=== PATIENT | female | born 1955 | race Caucasian/White ===

== ENCOUNTER 2016-09-02 09:07 | Outpatient (CLI) | payer MEDICAID | END 2016-09-02 09:08 | disposition home or self-care (01) | DX: Z12.31 Encounter for screening mammogram for malignant neoplasm of breast (principal) ==

== ENCOUNTER 2016-09-02 09:08 | Outpatient (CLI) | payer MEDICAID | END 2016-09-02 09:09 | disposition home or self-care (01) | DX: M85.89 Other specified disorders of bone density and structure, multiple sites (principal) ==

== ENCOUNTER 2017-01-05 09:25 | Outpatient (CLI) | payer MEDICAID ==
[2017-01-05 10:37] LABS: HEMOGLOBIN A1C 0.53 g/dL
[2017-01-05 11:04] LABS: ALBUMIN/GLOBULIN RATIO 1.4 (1.0-2.2); BILIRUBIN,TOTAL 0.9 mg/dL (0.2-1.0); BUN - BLOOD UREA NITROGEN 20 mg/dL (6-20); CARBON DIOXIDE - CO2 26 mmol/L (21-32); CHLORIDE 104 mmol/L (101-111); CHOL/HDL RATIO 2.5 (<4.4); CHOLESTEROL 118 mg/dL; CREATININE 0.9 mg/dL (0.4-1.0); GFR - MDRD 64 (>89); GLUCOSE 102 mg/dL (70-100); HDL CHOLESTEROL 47 mg/dL; POTASSIUM 3.4 mmol/L (3.5-5.0); SODIUM 141 mmol/L (135-145); TOTAL PROTEIN 7.8 g/dL (6.7-8.2); TRIGLYCERIDES 121 mg/dL; VLDL CHOLESTEROL 24 mg/dL
== END 2017-01-05 09:26 | disposition home or self-care (01) ==
LOC: LAB 09:25
PROVIDERS: ATTEND Physician Assistant Medical
DX: E78.5 Hyperlipidemia, unspecified (principal); E11.9 Type 2 diabetes mellitus without complications; Z79.899 Other long term (current) drug therapy
CPT/HCPCS: 36415; 80053; 80061; 83036

== ENCOUNTER 2017-02-26 12:27 | Emergency (ER) | payer MEDICAID ==
[2017-02-26] MEDS ORDERED: HYDROcod/ACETAM 5/325 MG TABLET PO STA (13:25)
--- NOTE | 2017-02-26 13:26 | ED Physician Documentation ---
PD HPI UPPER EXT INJURY - Stated complaint Stated Complaint: RT HAND INJ - Chief complaint Chief Complaint: Ext Problem - History obtained from History obtained from: Patient - History of Present Illness Location: Right, Hand Type of injury: Fall (tripped over her dogs leash, FOOSH inj) Where injury occurred: Home Timing - onset: Today (10am) Review of Systems Constitutional: denies: Fever, Chills Cardiac: denies: Chest pain / pressure, Palpitations Respiratory: denies: Dyspnea, Cough GI: denies: Abdominal Pain Musculoskeletal: denies: Pain with weight bearing Neurologic: denies: Headache, Head injury, LOC PD PAST MEDICAL HISTORY - Past Medical History Past Medical History: Yes Cardiovascular: Hypertension, High cholesterol Respiratory: None Endocrine/Autoimmune: Type 2 diabetes GI: GERD, Colon polyps, Diverticulitis : None HEENT: Chronic vision loss Psych: Depression, Anxiety, ADD/ADHD Musculoskeletal: Gout, Other Derm: Eczema - Past Surgical History Past Surgical History: Yes General: Colonoscopy - Present Medications Home Medications: Ambulatory Orders Medication Instructions Recorded Confirmed Escitalopram Oxalate 20 mg PO DAILY 11/01/15 02/26/17 HYDROcod/ACETAM 5/325 [[place] 5/325] 1 - 2 ea PO Q6H PRN #10 tablet 02/26/17 Trazodone HCl 50 mg PO DAILY PM 02/26/17 02/26/17 - Allergies Allergies/Adverse Reactions: Allergies Allergy/AdvReac Type Severity Reaction Status Date / Time No Known Drug Allergies Allergy Verified 02/26/17 12:39 - Social History Does the pt smoke?: No Smoking Status: Never smoker Does the pt drink ETOH?: No Does the pt have substance abuse?: No - Immunizations Immunizations are current?: No PD ED PE NORMAL - Vitals Vital signs reviewed: Yes - General General: Alert and oriented X 3, No acute distress - Neck Neck: Supple, no meningeal sign, No bony TTP - Extremities Extremities: Other (Tender in the area of the trapezium on the right hand, no laxity of the MCP. No snuffbox tenderness and really does not have pain with axial loading of the thumb. She says it mostly hurts when she touches her thumb and pinky together. There is some mild swelling in the area but no deformity. She does complain of mild left knee pain but she is nontender there and bearing weight normally.) - Neuro Neuro: Alert and oriented X 3, Normal speech - Psych Psych: Normal mood, Normal affect Results - Vitals Vitals: Vital Signs - 24 hr 02/26/17 12:35 Temperature 37.0 C Heart Rate 75 Respiratory 16 Rate Blood Pressure 126/86 H O2 Saturation 100 Oxygen O2 Source Room air - Rads (name of study) 3v L hand Radiology: EMP read contemporaneously (negative) Departure - Departure Disposition: 01 Home, Self Care Clinical Impression: Sprain of left hand Qualifiers: Encounter type: initial encounter Qualified Code(s): S63.92XA - Sprain of unspecified part of left wrist and hand, initial encounter Condition: Good Record reviewed to determine appropriate education?: Yes Instructions: ED Sprain Wrist Prescriptions: HYDROcod/ACETAM 5/325 [[place] 5/325] 1 - 2 ea PO Q6H PRN #10 tablet PRN Reason: Pain Comments: You can wear the splint as needed for comfort, you can take it off for handwashing etc. Follow-up with your doctor in 1 week for repeat x-rays if not better. Do not drink or drive while taking narcotic pain medication. Note that many narcotic pain relievers also contain Tylenol/acetaminophen. Please ensure that your total dose of acetaminophen from all sources does not exceed 3 g (3000 mg) per day. You may get constipated while on this medication. Take a stool softener such as Colace twice a day while you are on it. Also add an kcve-[id number] laxative such as senna or MiraLAX on any day that you do not have a bowel movement. If you received a narcotic pain medication or sedative while in the emergency department, do not drive for the next 24 hours. Your blood pressure was elevated today on check into the emergency department. This does not mean that you have hypertension, it is a common phenomenon to come to the emergency department and have elevated blood pressure. I recommend that she see her primary care physician within the week to have it rechecked when you are feeling better.
[2017-02-26] MEDS ORDERED: HYDROcod/ACETAM 5/325 MG TABLET ONE (13:33)
--- NOTE | 2017-02-26 13:57 | XRAY Preliminary Report ---
Exam: XR Hand 3 View RT IMPRESSION: No evidence of fracture or dislocation. [facility] SITE ID: [id number]
--- NOTE | 2017-02-26 13:59 | XRAY Report ---
EXAM: RIGHT HAND RADIOGRAPHY EXAM DATE: 02/26/2017 01:41 PM. CLINICAL HISTORY: Right hand pain COMPARISON: None. TECHNIQUE: 3 views. FINDINGS: Bones: Normal. No fractures or bone lesions. Joints: Normal. No subluxations. Soft Tissues: Normal. No soft tissue swelling. IMPRESSION: No evidence of fracture or dislocation. [facility] Referring Provider Line: [phone] SITE ID: [id number]
[2017-02-26 14:19] VITALS: BP 120/80
== END 2017-02-26 14:24 | disposition home or self-care (01) ==
LOC: ED 12:27
DX: S63.92XA Sprain of unspecified part of left wrist and hand, initial encounter (principal); W18.09XA Striking against other object with subsequent fall, initial encounter; Y92.009 Unspecified place in unspecified non-institutional (private) residence as the place of occurrence of the external cause; I10 Essential (primary) hypertension; E78.00 Pure hypercholesterolemia, unspecified
CPT/HCPCS: 73130; 99283; A9270

== ENCOUNTER 2017-04-13 09:11 | Outpatient (CLI) | payer MEDICAID ==
[2017-04-13 10:30] LABS: ALBUMIN/GLOBULIN RATIO 1.5 (1.0-2.2); BILIRUBIN,TOTAL 0.7 mg/dL (0.2-1.0); BUN - BLOOD UREA NITROGEN 16 mg/dL (6-20); CALCIUM 9.6 mg/dL (8.5-10.3); CARBON DIOXIDE - CO2 30 mmol/L (21-32); CHLORIDE 103 mmol/L (101-111); CHOL/HDL RATIO 6.2 (<4.4); CHOLESTEROL 285 mg/dL; CREATININE 0.9 mg/dL (0.4-1.0); GFR - MDRD 64 (>89); GLUCOSE 105 mg/dL (70-100); HDL CHOLESTEROL 46 mg/dL; LDL/HDL RATIO 4.2 (<4.4); POTASSIUM 4.7 mmol/L (3.5-5.0); SODIUM 140 mmol/L (135-145); TOTAL PROTEIN 7.2 g/dL (6.7-8.2); TRIGLYCERIDES 221 mg/dL; VLDL CHOLESTEROL 44 mg/dL
[2017-04-13 10:43] LABS: HEMOGLOBIN A1C 0.54 g/dL
== END 2017-04-13 09:12 | disposition home or self-care (01) ==
LOC: LAB 09:11
PROVIDERS: ATTEND Physician Assistant Medical
DX: E78.5 Hyperlipidemia, unspecified (principal); E11.9 Type 2 diabetes mellitus without complications; Z51.81 Encounter for therapeutic drug level monitoring; Z79.899 Other long term (current) drug therapy
CPT/HCPCS: 36415; 80053; 80061; 82043; 83036

== ENCOUNTER 2017-09-11 10:44 | Emergency (ER) | payer MEDICAID ==
[2017-09-11 10:50] VITALS: BP 158/108
--- NOTE | 2017-09-11 12:03 | ED Physician Documentation ---
History of Present Illness - Stated complaint Stated Complaint: RASH - Chief complaint Chief Complaint: General - Additonal information Additional information: hx from pt 61 female to ER with rash to R inguinal crease bruning no other concerns Review of Systems Constitutional: denies: Fever Skin: reports: Rash PD PAST MEDICAL HISTORY - Past Medical History Cardiovascular: Hypertension, High cholesterol Respiratory: None Endocrine/Autoimmune: Type 2 diabetes GI: GERD, Colon polyps, Diverticulitis : None HEENT: Chronic vision loss Psych: Depression, Anxiety, ADD/ADHD Musculoskeletal: Gout, Other Derm: Eczema - Past Surgical History Past Surgical History: Yes General: Colonoscopy - Present Medications Home Medications: Ambulatory Orders Medication Instructions Recorded Confirmed Escitalopram Oxalate 20 mg PO DAILY 11/01/15 02/26/17 Trazodone HCl 50 mg PO DAILY PM 02/26/17 02/26/17 Clotrimazole [Clotrimazole AF] 1 applic TP BID #30 cream..g. 09/11/17 Escitalopram Oxalate [Lexapro] 5 mg PO 09/11/17 Simvastatin 09/11/17 - Allergies Allergies/Adverse Reactions: Allergies Allergy/AdvReac Type Severity Reaction Status Date / Time No Known Drug Allergies Allergy Verified 09/11/17 10:50 - Social History Does the pt smoke?: No Smoking Status: Never smoker Does the pt drink ETOH?: No Does the pt have substance abuse?: No - Immunizations Immunizations are current?: No PD ED PE NORMAL - Vitals Vital signs reviewed: Yes - Cardiac Cardiac: RRR - Respiratory Respiratory: No respiratory distress, Clear bilaterally - Derm Derm: Other (most beefy red rash in opposing semicircles over the inguinal crease, no bullae crepitus or necrosis) Results - Vitals Vitals: Vital Signs - 24 hr 09/11/17 10:48 Temperature 36 C L Heart Rate 73 Respiratory 20 Rate Blood Pressure 158/108 H O2 Saturation 100 Oxygen O2 Source Room air PD MEDICAL DECISION MAKING - ED course ED course: FSBS 101 Departure - Departure Disposition: 01 Home, Self Care Clinical Impression: Yeast dermatitis Condition: Good Instructions: ED Candidiasis Cutaneous Prescriptions: Clotrimazole [Clotrimazole AF] 1 applic TP BID #30 cream..g. Comments: Please get your blood pressure rechecked - it was high today
== END 2017-09-11 12:34 | disposition home or self-care (01) ==
LOC: ED 10:44
DX: L30.9 Dermatitis, unspecified (principal); B37.89 Other sites of candidiasis; I10 Essential (primary) hypertension; E78.00 Pure hypercholesterolemia, unspecified
CPT/HCPCS: 99283

== ENCOUNTER 2017-09-22 09:57 | Outpatient (CLI) | payer MEDICAID ==
[2017-09-22 13:03] LABS: HB2 TOTAL 15.9 g/dL; HEMOGLOBIN A1C 0.57 g/dL; HEMOGLOBIN A1C % 5.4 % (4.6-6.2)
[2017-09-22 13:10] LABS: ALBUMIN 4.3 g/dL (3.2-5.5); ALBUMIN/GLOBULIN RATIO 1.5 (1.0-2.2); ALKALINE PHOSPHATASE 31 IU/L (42-121); ALT ALANINE AMINOTRANSFERASE 21 IU/L (10-60); AST ASPARTATE AMINOTRANSFERASE 21 IU/L (10-42); BILIRUBIN,TOTAL 0.6 mg/dL (0.2-1.0); BUN - BLOOD UREA NITROGEN 16 mg/dL (6-20); CALCIUM 9.3 mg/dL (8.5-10.3); CARBON DIOXIDE - CO2 29 mmol/L (21-32); CHLORIDE 103 mmol/L (101-111); CHOL/HDL RATIO 3.5 (<4.4); CHOLESTEROL 177 mg/dL; GFR - MDRD 57 (>89); GLUCOSE 106 mg/dL (70-100); HDL CHOLESTEROL 51 mg/dL; LDL CHOLESTEROL,CALCULATED 93 mg/dL; LDL/HDL RATIO 1.8 (<4.4); SODIUM 139 mmol/L (135-145); TOTAL PROTEIN 7.2 g/dL (6.7-8.2); VLDL CHOLESTEROL 33 mg/dL
== END 2017-09-22 09:58 | disposition home or self-care (01) ==
LOC: LAB.WCP 09:57
PROVIDERS: ATTEND Family Medicine
DX: E11.9 Type 2 diabetes mellitus without complications (principal); E78.5 Hyperlipidemia, unspecified; Z51.81 Encounter for therapeutic drug level monitoring
CPT/HCPCS: 36415; 80053; 80061; 83036; 83721

== ENCOUNTER 2018-07-28 23:09 | Outpatient (CLI) | payer MEDICAID | END 2018-07-28 23:10 | disposition home or self-care (01) | LOC: EMS 23:09 | PROVIDERS: ATTEND Surgery | DX: M54.9 Dorsalgia, unspecified (principal) | CPT/HCPCS: A0425; A0429 ==

== ENCOUNTER 2018-07-28 23:13 | Emergency (ER) | payer MEDICAID ==
[2018-07-28] MEDS ORDERED: KETOROLAC 60 MG/2 ML VIAL IM STA (23:25)
--- NOTE | 2018-07-28 23:33 | ED Physician Documentation ---
History of Present Illness - Stated complaint Stated Complaint: BACK PAIN - Chief complaint Chief Complaint: Back Pain - History obtained from History obtained from: Patient, EMS - History of Present Illness Timing: Today, How many hours ago (1) Pain level max: 9 Pain level now: 9 - Additonal information Additional information: 62-year-old female with sudden onset of left flank pain tonight. Does not recall any injury. Has had low back pain in the past but states this feels different. No numbness or tingling. Nothing makes the pain better or worse. Took Tylenol without relief. No fevers. No vomiting. No hematuria. No history of ureteral stones. Does not use IV drugs. Review of Systems Ten Systems: 10 systems reviewed and negative Constitutional: denies: Fever, Chills Ears: denies: Ear pain Nose: denies: Rhinorrhea / runny nose, Congestion Throat: denies: Sore throat Cardiac: denies: Chest pain / pressure Respiratory: denies: Cough GI: denies: Abdominal Pain, Nausea, Vomiting, Diarrhea : denies: Dysuria Skin: denies: Rash Musculoskeletal: denies: Neck pain, Back pain Neurologic: denies: Headache PD PAST MEDICAL HISTORY - Past Medical History Cardiovascular: Hypertension, High cholesterol Respiratory: None Endocrine/Autoimmune: Type 2 diabetes GI: GERD, Colon polyps, Diverticulitis : None HEENT: Chronic vision loss Psych: Depression, Anxiety, ADD/ADHD Musculoskeletal: Gout, Other Derm: Eczema - Past Surgical History Past Surgical History: Yes General: Colonoscopy - Present Medications Home Medications: Ambulatory Orders Medication Instructions Recorded Confirmed Escitalopram Oxalate 20 mg PO DAILY 11/01/15 02/26/17 Trazodone HCl 50 mg PO DAILY PM 02/26/17 02/26/17 Clotrimazole [Clotrimazole AF] 1 applic TP BID #30 cream..g. 09/11/17 Escitalopram Oxalate [Lexapro] 5 mg PO 09/11/17 Simvastatin 09/11/17 Meloxicam [Mobic] 15 mg PO DAILY PRN #20 tablet 07/29/18 Oxycodone HCl/Acetaminophen 1 - 2 each PO Q6H PRN #14 tablet 07/29/18 [Percocet 5-325 mg Tablet] - Allergies Allergies/Adverse Reactions: Allergies Allergy/AdvReac Type Severity Reaction Status Date / Time No Known Drug Allergies Allergy Verified 09/11/17 10:50 - Social History Does the pt smoke?: No Smoking Status: Never smoker Does the pt drink ETOH?: No Does the pt have substance abuse?: No - Immunizations Immunizations are current?: No PD ED PE NORMAL - Vitals Vital signs reviewed: Yes - General General: Alert and oriented X 3, No acute distress - HEENT HEENT: Moist mucous membranes - Neck Neck: Supple, no meningeal sign, No bony TTP - Cardiac Cardiac: RRR, Strong equal pulses - Respiratory Respiratory: No respiratory distress, Clear bilaterally - Abdomen Abdomen: Soft, Non tender, Non distended - Back Back: No CVA TTP, No spinal TTP (No midline tenderness to palpation or percussion.) - Derm Derm: Warm and dry - Extremities Extremities: No edema, No calf tenderness / cord, Other (Normal bilateral lower extremity patellar and ankle jerk reflexes. Normal great toe extension bilaterally. no saddle anesthesia) - Neuro Neuro: Alert and oriented X 3, No motor deficit, No sensory deficit - Psych Psych: Normal mood, Normal affect Results - Vitals Vitals: Vital Signs - 24 hr 07/28/18 07/28/18 07/29/18 23:15 23:33 01:21 Temperature 36.6 C Heart Rate 89 85 79 Respiratory 17 17 15 Rate Blood Pressure 141/80 H 118/59 L 130/78 O2 Saturation 96 96 95 Oxygen O2 Source Room air - Labs Labs: Laboratory Tests 07/28/18 07/28/18 07/29/18 23:34 23:34 00:05 WBC 5.3 RBC 4.36 Hgb 14.0 Hct 40.2 MCV 92.3 MCH 32.1 H MCHC 34.8 RDW 13.6 Plt Count 234 MPV 7.6 L Neut # (Auto) 2.7 Lymph # (Auto) 1.9 Lamb # (Auto) 0.4 Eos # (Auto) 0.2 Baso # (Auto) 0.1 Absolute Nucleated RBC 0.01 Nucleated RBC % 0.1 Sodium 137 Potassium 4.0 Chloride 102 Carbon Dioxide 27 Anion Gap 8.0 BUN 20 Creatinine 0.9 Estimated GFR (MDRD) 64 L Glucose 124 H Calcium 9.4 Total Bilirubin 0.4 AST 19 ALT 20 Alkaline Phosphatase 46 Total Protein 7.1 Albumin 3.9 Globulin 3.2 Albumin/Globulin Ratio 1.2 Lipase 39 Urine Color YELLOW Urine Clarity CLEAR Urine pH 5.5 Ur Specific [place] >=1.030 H Urine Protein NEGATIVE Urine Glucose (UA) NEGATIVE Urine Ketones TRACE Urine Occult Blood SMALL H Urine Nitrite NEGATIVE Urine Bilirubin NEGATIVE Urine Urobilinogen 0.2 (NORMAL) Ur Leukocyte Esterase NEGATIVE Urine RBC 6-10 H Urine WBC 0-3 Ur Squamous Epith Cells MOD Squamous H Urine Bacteria Few Urine Mucus Moderate Strands Ur Microscopic Review INDICATED Urine Culture Comments NOT INDICATED - Rads (name of study) Ct abd/pelvis without. Radiology: Prelim report reviewed, EMP read contemporaneously, See rad report (No urolithiasis identified. Left ovarian follicle measuring 1.6 cm. Colonic diverticula. No diverticulitis seen. Cholelithiasis without evidence of cholecystitis. ) PD MEDICAL DECISION MAKING - ED course Complexity details: reviewed results, re-evaluated patient, considered differential (No cauda equina, no spinal epidural abscess, no fracture, no aortic dissection or evidence of aneursym rupture), d/w patient ED course: 62-year-old female with left lower back pain of unclear etiology. No evidence of ureteral stone on CT scan. Does have slight hematuria. Pain improved in the emergency department is ambulating without difficulty. We will continue supportive care and follow-up with her doctor for repeat evaluation. Will trial on pain medication for home. No evidence of aortic or renal artery dissection. This document was made in part using voice recognition software. While efforts are made to proofread this document, sound alike and grammatical errors may occur. Departure - Departure Disposition: 01 Home, Self Care Clinical Impression: Back pain Qualifiers: Back pain location: low back pain Chronicity: acute Back pain laterality: left Sciatica presence: without sciatica Qualified Code(s): M54.5 - Low back pain Condition: Good Instructions: ED Back Care Tips Follow-Up: Kelin Bass DO [Primary Care Provider] - Within 1 week Prescriptions: Meloxicam [Mobic] 15 mg PO DAILY PRN #20 tablet PRN Reason: pain Oxycodone HCl/Acetaminophen [Percocet 5-325 mg Tablet] 1 - 2 each PO Q6H PRN #14 tablet PRN Reason: pain Comments: The cause of your symptoms is unclear today. Return if you worsen. Use the medications as prescribed. You may have had a small kidney stone that was unable to be visualized on the CT scan. You do have some blood in your urine. Return for uncontrolled pain, fevers or vomiting. Do not drink alcohol or drive while on narcotic pain medicine. Note that many narcotic pain relievers also contain tylenol/acetaminophen. Please ensure that your total dose of acetaminophen from all sources does not exceed 3 grams (3000mg) per day. You may constipated on this medication, take a stool softener such as "Colace" twice a day while you are on it. Also recommend a wruc-zyw-wamprox laxative such as senna or MiraLAX any day that you do not have a bowel movement. If you received narcotic pain medication in the emergency department, do not drive or operate machinery for the next 24 hours. Discharge Date/Time: 07/29/18 01:38
[2018-07-28 23:44] LABS: BASOPHILS # (AUTO) 0.1 10^3/uL (0.0-0.1); BASOPHILS % (AUTO) 1.6 %; EOSINOPHILS # (AUTO) 0.2 10^3/uL (0.0-0.7); EOSINOPHILS % (AUTO) 4.7 %; LYMPHOCYTES # (AUTO) 1.9 10^3/uL (1.5-3.5); LYMPHOCYTES % (AUTO) 35.4 %; MEAN CORPUSCULAR HEMOGLOBIN 32.1 pg (27.0-31.0); MEAN CORPUSCULAR HGB CONC 34.8 g/dL (32.0-36.0); MEAN CORPUSCULAR VOLUME 92.3 fL (81.0-99.0); MEAN PLATELET VOLUME 7.6 fL (7.9-10.8); MONOCYTES # (AUTO) 0.4 10^3/uL (0.0-1.0); MONOCYTES % (AUTO) 7.2 %; NEUTROPHILS # (AUTO) 2.7 10^3/uL (1.5-6.6); NEUTROPHILS % (AUTO) 51.1 %; PLT - PLATELET COUNT 234 10^3/uL (130-450); RED BLOOD COUNT 4.36 10^6/uL (4.20-5.40); RED CELL DISTRIBUTION WIDTH 13.6 % (12.0-15.0); WHITE BLOOD COUNT 5.3 x10^3/uL (4.8-10.8)
--- NOTE | 2018-07-29 00:15 | CT Report ---
Reason: L flank pain, sudden onset Procedure Date: 07/28/2018 Accession Number: [id number] / [id number] Procedure: CT - Abdomen/Pelvis W/O CPT Code: FULL RESULT: EXAM: CT ABDOMEN AND PELVIS (CT KUB) EXAM DATE: 07/28/2018 11:59 PM. CLINICAL HISTORY: L flank pain, sudden onset. COMPARISONS: ABDOMEN/PELVIS W/O 05/12/2016 1:22 PM. TECHNIQUE: Routine axial helical CT imaging was performed through the abdomen and pelvis without IV contrast. Reconstructions: Coronal and sagittal. In accordance with CT protocol optimization, one or more of the following dose reduction techniques were utilized for this exam: automated exposure control, adjustment of mA and/or KV based on patient size, or use of iterative reconstructive technique. FINDINGS: Lung Bases: Mild bibasilar atelectasis. Small hiatal hernia. Right Kidney/Ureter: No stones, hydronephrosis, or hydroureter. No perinephric fat stranding. Left Kidney/Ureter: Small renal cyst. No stones, hydronephrosis, or hydroureter. No perinephric fat stranding. Other Solid Organs: Noncontrast images of the solid organs are grossly unremarkable. Gallbladder/Bile Ducts: Stones in the gallbladder. No obvious cholecystitis. Peritoneal Cavity: Colonic diverticula are seen. No diverticulitis is identified. Moderate stool in the colon, right greater than left. No bowel obstruction seen. No free air or free fluid. No lymphadenopathy. Pelvic Organs: Left ovarian follicle measuring 1.6 cm. Visualized pelvic organs are otherwise unremarkable. Vasculature: Mild atherosclerosis. No aortic aneurysm. Other: Osteopenia. Grade 1 degenerative spondylolisthesis at L5-S1. IMPRESSION: 1. No urolithiasis identified. 2. Left ovarian follicle measuring 1.6 cm. 3. Colonic diverticula. No diverticulitis seen. 4. Cholelithiasis without evidence of cholecystitis. [facility]
[2018-07-29 00:16] LABS: ALBUMIN 3.9 g/dL (3.2-5.5); ALBUMIN/GLOBULIN RATIO 1.2 (1.0-2.2); BILIRUBIN,TOTAL 0.4 mg/dL (0.2-1.0); CALCIUM 9.4 mg/dL (8.5-10.3); CREATININE 0.9 mg/dL (0.4-1.0); TOTAL PROTEIN 7.1 g/dL (6.7-8.2)
[2018-07-29 00:24] LABS: BILIRUBIN,URINE NEGATIVE (NEGATIVE); CLARITY,URINE CLEAR (CLEAR); GLUCOSE, URINE (UA) NEGATIVE (NEGATIVE); KETONES,URINE (UA) TRACE mg/dL (NEGATIVE); LEUKOCYTE ESTERASE, URINE NEGATIVE (NEGATIVE); NITRITE,URINE NEGATIVE (NEGATIVE); OCCULT BLOOD,URINE SMALL (NEGATIVE); PH,URINE 5.5 PH (5.0-7.5); PROTEIN,URINE NEGATIVE (NEGATIVE); UROBILINOGEN,URINE 0.2 (NORMAL) E.U./dL (NORMAL)
[2018-07-29 00:33] LABS: BACTERIA,URINE Few /HPF (None Seen); MUCUS,URINE Moderate Strands; SQUAMOUS EPITHELIAL CELL,UR MOD Squamous (<= Few)
[2018-07-29] MEDS ORDERED: oxyCODONE 5 MG TABLET PO STA (00:55)
[2018-07-29 01:23] VITALS: BP 130/78
== END 2018-07-29 01:38 | disposition home or self-care (01) ==
LOC: EDUNIT# → ED 23:13
DX: M54.5 Low back pain (principal); R31.9 Hematuria, unspecified; K80.20 Calculus of gallbladder without cholecystitis without obstruction; K57.30 Diverticulosis of large intestine without perforation or abscess without bleeding; N28.1 Cyst of kidney, acquired; I10 Essential (primary) hypertension; E11.9 Type 2 diabetes mellitus without complications
CPT/HCPCS: 36415; 74176; 80053; 81001; 83690; 85025; 96372; 99283; A9270; 81003; 87086

== ENCOUNTER 2018-10-12 11:40 | Outpatient (CLI) | payer MEDICAID ==
[2018-10-12 19:18] LABS: CALCIUM 9.7 mg/dL (8.5-10.3); CREATININE 0.9 mg/dL (0.4-1.0)
== END 2018-10-12 11:41 | disposition home or self-care (01) ==
LOC: LAB.WCP 11:40
PROVIDERS: ATTEND Family Medicine
DX: I10 Essential (primary) hypertension (principal)
CPT/HCPCS: 36415; 80048

== ENCOUNTER 2018-10-27 11:07 | Outpatient (CLI) | payer MEDICAID ==
[2018-10-27 11:35] LABS: CALCIUM 9.2 mg/dL (8.5-10.3); CREATININE 0.9 mg/dL (0.4-1.0)
== END 2018-10-27 11:08 | disposition home or self-care (01) ==
LOC: LAB 11:07
PROVIDERS: ATTEND Family Medicine
DX: E87.6 Hypokalemia (principal)
CPT/HCPCS: 36415; 80048

== ENCOUNTER 2018-11-02 15:12 | Outpatient (CLI) | payer MEDICAID ==
[2018-11-02 19:32] LABS: BASOPHILS % (AUTO) 0.5 %; EOSINOPHILS # (AUTO) 0.2 10^3/uL (0.0-0.7); HGB - HEMOGLOBIN 14.6 g/dL (12.0-16.0); LYMPHOCYTES # (AUTO) 2.7 10^3/uL (1.5-3.5); LYMPHOCYTES % (AUTO) 33.8 %; MEAN CORPUSCULAR HGB CONC 33.3 g/dL (32.0-36.0); MEAN CORPUSCULAR VOLUME 93.2 fL (81.0-99.0); MEAN PLATELET VOLUME 8.7 fL (7.9-10.8); MONOCYTES # (AUTO) 0.5 10^3/uL (0.0-1.0); MONOCYTES % (AUTO) 5.9 %; NEUTROPHILS # (AUTO) 4.7 10^3/uL (1.5-6.6); NEUTROPHILS % (AUTO) 57.8 %; PLT - PLATELET COUNT 270 10^3/uL (130-450); RED BLOOD COUNT 4.72 10^6/uL (4.20-5.40); RED CELL DISTRIBUTION WIDTH 14.8 % (12.0-15.0); WHITE BLOOD COUNT 8.1 x10^3/uL (4.8-10.8)
[2018-11-02 20:00] LABS: ALBUMIN 4.5 g/dL (3.2-5.5); ALBUMIN/GLOBULIN RATIO 1.3 (1.0-2.2); ALKALINE PHOSPHATASE 41 IU/L (42-121); ALT ALANINE AMINOTRANSFERASE 32 IU/L (10-60); AST ASPARTATE AMINOTRANSFERASE 26 IU/L (10-42); BILIRUBIN,TOTAL 0.7 mg/dL (0.2-1.0); BUN - BLOOD UREA NITROGEN 18 mg/dL (6-20); CALCIUM 10.6 mg/dL (8.5-10.3); CARBON DIOXIDE - CO2 30 mmol/L (21-32); CHLORIDE 97 mmol/L (101-111); CHOL/HDL RATIO 3.3 (<4.4); CHOLESTEROL 187 mg/dL; CREATININE 0.8 mg/dL (0.4-1.0); GFR - MDRD 73 (>89); GLUCOSE 102 mg/dL (70-100); HDL CHOLESTEROL 57 mg/dL; LDL CHOLESTEROL,CALCULATED 83 mg/dL; LDL/HDL RATIO 1.5 (<4.4); SODIUM 136 mmol/L (135-145); TOTAL PROTEIN 7.9 g/dL (6.7-8.2); VLDL CHOLESTEROL 47 mg/dL
== END 2018-11-02 23:59 | disposition home or self-care (01) ==
LOC: LAB.WCP 15:12
PROVIDERS: ATTEND Family Medicine
DX: I10 Essential (primary) hypertension (principal); E78.5 Hyperlipidemia, unspecified; F41.9 Anxiety disorder, unspecified
CPT/HCPCS: 36415; 80053; 80061; 83721; 84443; 85025

== ENCOUNTER 2018-11-09 12:38 | Outpatient (CLI) | payer MEDICAID ==
--- NOTE | 2018-11-10 08:57 | Mammography Report ---
Reason: SCREENING MAMMO Procedure Date: 11/09/2018 Accession Number: [id number] / [id number] Procedure: DWAIN - Screening Mammo Dig Bilat CPT Code: FULL RESULT: EXAM: Screening Mammo Dig Bilat DATE: 11/09/2018 1:27 PM CLINICAL HISTORY: Screening encounter. History of early menses. TECHNIQUE: (B) - Bilateral CC and MLO views were obtained. A right laterally exaggerated CC views obtained. COMPARISON: 08/25/2016 and 03/29/2015. PARENCHYMAL PATTERN: (A) - The breast(s) demonstrate(s) scattered fibroglandular densities. FINDINGS: There are no suspicious masses, calcifications, or areas of distortion. IMPRESSION: Negative examination. BI-RADS category 1. RECOMMENDATION: (ANNUAL) - Recommend routine annual screening mammography. BI-RADS CATEGORY: (1) - Negative. STANDARD QUALIFYING STATEMENTS: 1. This examination was not reviewed with the aid of Computer-Aided Detection (CAD). 2. A negative or benign imaging report should not preclude biopsy if clinically suspicious findings are present. 3. Dense breasts may obscure an underlying neoplasm. 4. This examination was reviewed without the aid of 3D breast imaging (tomosynthesis).
== END 2018-11-09 12:39 | disposition home or self-care (01) ==
LOC: DI 12:38
PROVIDERS: ATTEND Family Medicine
DX: Z12.31 Encounter for screening mammogram for malignant neoplasm of breast (principal)
CPT/HCPCS: 77067

== ENCOUNTER 2019-02-21 16:01 | Emergency (ER) | payer MEDICAID ==
--- NOTE | 2019-02-21 19:28 | ED Physician Documentation ---
History of Present Illness - Stated complaint Stated Complaint: LIP IRRITATION - Chief complaint Chief Complaint: Heent - Additonal information Additional information: This is a 63-year-old female with a history of diabetes, hypertension, anxiety, depression, who presents with a lip lesion. Patient states she oftentimes will get cold sores, she developed a cold sore within the last week, and this is since scabbed over. She noticed that she had a second small cold sore starting on the margin of the first, so she decided to come and get checked out. She denies any lesions elsewhere, denies any eye pain or vision change, she states t hat these look like her typical cold sore. No fever Review of Systems Constitutional: denies: Fever Throat: reports: Oral lesions / sores PD PAST MEDICAL HISTORY - Past Medical History Cardiovascular: Hypertension, High cholesterol Respiratory: None Endocrine/Autoimmune: Type 2 diabetes GI: GERD, Colon polyps, Diverticulitis : None HEENT: Chronic vision loss Psych: Depression, Anxiety, ADD/ADHD Musculoskeletal: Gout, Other Derm: Eczema - Past Surgical History Past Surgical History: Yes General: Colonoscopy - Present Medications Home Medications: Ambulatory Orders Medication Instructions Recorded Confirmed RX: Escitalopram Oxalate 20 mg PO DAILY 11/01/15 02/26/17 RX: Trazodone HCl 50 mg PO DAILY PM 02/26/17 02/26/17 Clotrimazole [Clotrimazole AF] 1 applic TP BID #30 cream..g. 09/11/17 Escitalopram Oxalate [Lexapro] 5 mg PO 09/11/17 RX: Simvastatin 09/11/17 Meloxicam [Mobic] 15 mg PO DAILY PRN #20 tablet 07/29/18 Oxycodone HCl/Acetaminophen 1 - 2 each PO Q6H PRN #14 tablet 07/29/18 [Percocet 5-325 mg Tablet] - Allergies Allergies/Adverse Reactions: Allergies Allergy/AdvReac Type Severity Reaction Status Date / Time No Known Drug Allergies Allergy Verified 02/21/19 16:07 - Social History Does the pt smoke?: No Smoking Status: Never smoker Does the pt drink ETOH?: No Does the pt have substance abuse?: No - Immunizations Immunizations are current?: No - POLST Patient has POLST: No PD ED PE NORMAL - General General: Alert and oriented X 3, No acute distress - HEENT HEENT: Other (Small 0.5cm crusted lesion with a 3mm vesicle on the lower lip. No surrounding erythema, no mucosal lesions.) - Neck Neck: Supple, no meningeal sign - Cardiac Cardiac: RRR - Respiratory Respiratory: No respiratory distress - Neuro Neuro: Alert and oriented X 3 Results - Vitals Vitals: Oxygen O2 Source Room air PD MEDICAL DECISION MAKING - ED course Complexity details: considered differential (HSV, ulcer, laceration) ED course: Pt presents with what appears to be a classic cold sore/HSV lesion. She has no signs of involvement outside of her lip or elsewhere on her face. She has no other concerns and just wanted to check on what the lesion was. I discussed the option of anti-viral treatment, she would prefer to use blistex and follow up with her PCP, which is reasonable. Departure - Departure Disposition: 01 Home, Self Care Clinical Impression: Cold sore Condition: Good Instructions: Cold Sore Follow-Up: Kelin Bass DO [Primary Care Provider] - Within 1 week Comments: You were seen today for lip lesion, this appears to be a cold sore. You may use Vaseline or Blistex over top of this, and follow-up with your primary care provider. If you develop any increasing redness, pain, or lesions spreading over your face, nose, or pain or vision changes in your eye, return to the e mergency department immediately. Discharge Date/Time: 02/21/19 19:39
[2019-02-21 19:40] VITALS: BP 131/90
== END 2019-02-21 19:39 | disposition home or self-care (01) ==
LOC: ED 16:01
DX: B00.1 Herpesviral vesicular dermatitis (principal); E11.9 Type 2 diabetes mellitus without complications; I10 Essential (primary) hypertension
CPT/HCPCS: 99282

== ENCOUNTER 2019-05-07 23:15 | Emergency (ER) | payer MEDICAID ==
[2019-05-07] MEDS ORDERED: LORazepam 1 MG TABLET PO STA (23:29)
--- NOTE | 2019-05-07 23:55 | ED Physician Documentation ---
History of Present Illness - Stated complaint Stated Complaint: RAPID HEARTBEAT - Chief complaint Chief Complaint: Cardiac - History obtained from History obtained from: Patient, Family - History of Present Illness Timing: Today, How many hours ago (1) Pain level max: 0 Pain level now: 0 - Additonal information Additional information: 63-year-old female with a history of anxiety. She presents to the emergency department after having a verbal altercation with her . She states that since that time she has felt like her heart has been racing and she is having a hard time breathing. No chest pain. No nausea or vomiting. Nothing makes it better or worse. Has not taken anything for this. No recent surgeries. No recent travel. No history of blood clots. Review of Systems Constitutional: denies: Fever, Chills Respiratory: denies: Cough GI: denies: Vomiting, Diarrhea Skin: denies: Rash Musculoskeletal: denies: Neck pain, Back pain Neurologic: denies: Headache PD PAST MEDICAL HISTORY - Past Medical History Cardiovascular: Hypertension, High cholesterol Respiratory: None Endocrine/Autoimmune: Type 2 diabetes GI: GERD, Colon polyps, Diverticulitis : None HEENT: Chronic vision loss Psych: Depression, Anxiety, ADD/ADHD Musculoskeletal: Gout, Other Derm: Eczema - Past Surgical History Past Surgical History: Yes General: Colonoscopy - Present Medications Home Medications: Ambulatory Orders Medication Instructions Recorded Confirmed Escitalopram Oxalate 20 mg PO DAILY 11/01/15 02/26/17 Trazodone HCl 50 mg PO DAILY PM 02/26/17 02/26/17 Clotrimazole [Clotrimazole AF] 1 applic TP BID #30 cream..g. 09/11/17 Escitalopram Oxalate [Lexapro] 5 mg PO 09/11/17 Simvastatin 09/11/17 Meloxicam [Mobic] 15 mg PO DAILY PRN #20 tablet 07/29/18 Oxycodone HCl/Acetaminophen 1 - 2 each PO Q6H PRN #14 tablet 07/29/18 [Percocet 5-325 mg Tablet] - Allergies Allergies/Adverse Reactions: Allergies Allergy/AdvReac Type Severity Reaction Status Date / Time No Known Drug Allergies Allergy Verified 02/21/19 16:07 - Social History Does the pt smoke?: No Smoking Status: Never smoker Does the pt drink ETOH?: No Does the pt have substance abuse?: No - Immunizations Immunizations are current?: No - POLST Patient has POLST: No PD ED PE NORMAL - Vitals Vital signs reviewed: Yes - General General: Alert and oriented X 3, No acute distress, Well developed/nourished, Other (Appears anxious) - HEENT HEENT: PERRL, Moist mucous membranes - Neck Neck: Supple, no meningeal sign - Cardiac Cardiac: RRR, No murmur, Strong equal pulses - Respiratory Respiratory: No respiratory distress, Clear bilaterally - Abdomen Abdomen: Soft, Non tender, Non distended - Derm Derm: Warm and dry - Extremities Extremities: No edema, No calf tenderness / cord - Neuro Neuro: Alert and oriented X 3 - Psych Psych: Normal mood, Normal affect Results - Vitals Vitals: Vital Signs - 24 hr 05/07/19 05/08/19 23:29 00:39 Temperature 37 C 36.8 C Heart Rate 85 82 Respiratory 22 16 Rate Blood Pressure 159/81 H 129/72 O2 Saturation 97 99 Oxygen O2 Source Room air - EKG (time done) 2318 Rate: Rate (enter#) (91) Rhythm: NSR [place]: Normal Intervals: Normal [place] QRS: Normal Ischemia: Non specific changes - Labs Labs: Laboratory Tests 05/07/19 05/07/19 05/07/19 23:50 23:50 23:50 WBC 6.1 RBC 4.68 Hgb 14.7 Hct 44.4 MCV 94.9 MCH 31.4 H MCHC 33.1 RDW 13.1 Plt Count 242 MPV 9.6 Neut # (Auto) 2.8 Lymph # (Auto) 2.7 [place] # (Auto) 0.4 Eos # (Auto) 0.2 Baso # (Auto) 0.0 Absolute Nucleated RBC 0.00 Nucleated RBC % 0.0 Sodium 139 Potassium 3.4 L Chloride 98 L Carbon Dioxide 29 Anion Gap 12.0 BUN 20 Creatinine 1.0 Estimated GFR (MDRD) 56 L Glucose 227 H Calcium 9.2 Total Bilirubin 0.3 AST 23 ALT 35 Alkaline Phosphatase 52 Troponin I High Sens 2.6 Total Protein 7.6 Albumin 4.1 Globulin 3.5 Albumin/Globulin Ratio 1.2 Lipase 37 - Rads (name of study) cxr Radiology: Prelim report reviewed, EMP read contemporaneously, See rad report (no acute disease) PD MEDICAL DECISION MAKING - ED course Complexity details: reviewed results, re-evaluated patient, considered differential, d/w patient ED course: Symptoms resolved with Ativan. Feels much better. No evidence of acute coronary syndrome. No evidence of pneumothorax. No evidence of PE. She is found to be hyperglycemic as well. States she was on metformin in the past, but is not currently on metformin. We will have her follow-up with her doctor for further care. Patient counseled regarding signs and symptoms for which I believe and urgent re-evaluation would be necessary. Patient with good understanding of and agreement to plan and is comfortable going home at this time This document was made in part using voice recognition software. While efforts are made to proofread this document, sound alike and grammatical errors may occur. Departure - Departure Disposition: 01 Home, Self Care Clinical Impression: Anxiety, Hyperglycemia Chest pain Qualifiers: Chest pain type: unspecified Qualified Code(s): R07.9 - Chest pain, unspecified Instructions: ED Stress React, ED Chest Pain Atypical Unkn Cause Follow-Up: Kelin Bass DO [Primary Care Provider] - Within 1 week Comments: Follow-up with your doctor for further care. Return if you worsen. Your blood sugar was elevated today, 227. This should be rechecked with your doctor and you should be screened for diabetes. Do not drive or operate heavy machinery tonight. Your heart tests are normal. Discharge Date/Time: 05/08/19 00:54
[2019-05-08 00:03] LABS: BASOPHILS % (AUTO) 0.5 %; EOSINOPHILS # (AUTO) 0.2 10^3/uL (0.0-0.7); EOSINOPHILS % (AUTO) 3.6 %; HGB - HEMOGLOBIN 14.7 g/dL (12.0-16.0); LYMPHOCYTES # (AUTO) 2.7 10^3/uL (1.5-3.5); LYMPHOCYTES % (AUTO) 43.6 %; MEAN CORPUSCULAR HEMOGLOBIN 31.4 pg (27.0-31.0); MEAN CORPUSCULAR HGB CONC 33.1 g/dL (32.0-36.0); MEAN CORPUSCULAR VOLUME 94.9 fL (81.0-99.0); MEAN PLATELET VOLUME 9.6 fL (7.9-10.8); MONOCYTES # (AUTO) 0.4 10^3/uL (0.0-1.0); NEUTROPHILS # (AUTO) 2.8 10^3/uL (1.5-6.6); NEUTROPHILS % (AUTO) 46.1 %; PLT - PLATELET COUNT 242 10^3/uL (130-450); RED BLOOD COUNT 4.68 10^6/uL (4.20-5.40); RED CELL DISTRIBUTION WIDTH 13.1 % (12.0-15.0); WHITE BLOOD COUNT 6.1 x10^3/uL (4.8-10.8)
--- NOTE | 2019-05-08 00:08 | XRAY Report ---
Reason: Chest Pain Procedure Date: 05/07/2019 Accession Number: [id number] / [id number] Procedure: XR - Chest 1 View X-Ray CPT Code: 79787 Final Report FULL RESULT: EXAM: CHEST RADIOGRAPHY EXAM DATE: 05/07/2019 11:54 PM. CLINICAL HISTORY: Chest Pain. COMPARISON: CHEST 2 VIEW PA/LAT 06/20/2016 11:30 AM. TECHNIQUE: 1 view. FINDINGS: Lungs/Pleura: No focal opacities evident. No pleural effusion. No pneumothorax. Mediastinum: Within exam limitations, the cardiomediastinal contour is normal. Other: None. IMPRESSION: Normal single view chest. RADIA
[2019-05-08 00:16] LABS: ALBUMIN 4.1 g/dL (3.2-5.5); ALBUMIN/GLOBULIN RATIO 1.2 (1.0-2.2); BILIRUBIN,TOTAL 0.3 mg/dL (0.2-1.0); CALCIUM 9.2 mg/dL (8.5-10.3); TOTAL PROTEIN 7.6 g/dL (6.7-8.2)
[2019-05-08 00:40] VITALS: BP 129/72
== END 2019-05-08 00:54 | disposition home or self-care (01) ==
LOC: ED 23:15
DX: F41.9 Anxiety disorder, unspecified (principal); E11.65 Type 2 diabetes mellitus with hyperglycemia; R07.9 Chest pain, unspecified; I10 Essential (primary) hypertension; E78.00 Pure hypercholesterolemia, unspecified
CPT/HCPCS: 36415; 71045; 80053; 83690; 84484; 85025; 93005; 99284; J8499

== ENCOUNTER 2019-05-20 10:27 | Outpatient (CLI) | payer MEDICAID ==
[2019-05-20 11:05] LABS: HB2 TOTAL 15.5 g/dL; HEMOGLOBIN A1C 0.69 g/dL; HEMOGLOBIN A1C % 6.2 % (4.6-6.2)
[2019-05-20 11:11] LABS: BUN - BLOOD UREA NITROGEN 21 mg/dL (6-20); CALCIUM 9.2 mg/dL (8.5-10.3); CARBON DIOXIDE - CO2 27 mmol/L (21-32); CHLORIDE 100 mmol/L (101-111); CHOL/HDL RATIO 4.7 (<4.4); CHOLESTEROL 261 mg/dL; CREATININE 0.9 mg/dL (0.4-1.0); GFR - MDRD 63 (>89); GLUCOSE 139 mg/dL (70-100); HDL CHOLESTEROL 55 mg/dL; LDL CHOLESTEROL,CALCULATED 139 mg/dL; LDL/HDL RATIO 2.5 (<4.4); SODIUM 139 mmol/L (135-145); URIC ACID 6.7 mg/dL (2.6-7.2); VLDL CHOLESTEROL 67 mg/dL
== END 2019-05-20 10:28 | disposition home or self-care (01) ==
LOC: LAB 10:27
PROVIDERS: ATTEND Family Medicine
DX: E83.52 Hypercalcemia (principal); R73.9 Hyperglycemia, unspecified; E11.9 Type 2 diabetes mellitus without complications; M10.9 Gout, unspecified
CPT/HCPCS: 36415; 80048; 80061; 83036; 83721; 83970; 84550

== ENCOUNTER 2019-05-28 20:07 | Emergency (ER) | payer MEDICAID ==
--- NOTE | 2019-05-28 20:34 | ED Physician Documentation ---
History of Present Illness - Stated complaint Stated Complaint: RAPIT HR/BACK PX - Chief complaint Chief Complaint: Cardiac - History obtained from History obtained from: Patient - History of Present Illness Timing: Prior to arrival, Today Pain level now: 6 - Additonal information Additional information: This is a 63-year-old woman who presents with her complains that she has a sharp pain in the left side of her back that began 30 minutes prior to arrival while she was just sitting. She says is not radiating anywhere but then did complain of some abdominal pain in the left upper quadrant. She rates pain at a 6 out of 10 and did not take anything for it. She is nauseous but no vomiting. She denies dysuria or blood in the urine but complains that it "itches" when she pees. Denies history of kidney stones. She did feel like her heart was racing and has had a negative stress test in the past. She is been coughing at night which she does not feel she should be doing. Patient does have a history of gallstones but no cholecystectomy and a history of diverticulitis. Denies fever, stuffy nose or sore throat. She complains of a dry mouth. Review of Systems Constitutional: denies: Fever Nose: denies: Congestion Throat: reports: Other (Dry mouth). denies: Sore throat Cardiac: reports: Palpitations. denies: Chest pain / pressure Respiratory: reports: Dyspnea, Cough GI: reports: Abdominal Pain. denies: Nausea, Vomiting : denies: Dysuria, Hematuria Skin: denies: Rash Musculoskeletal: reports: Back pain Neurologic: denies: Near syncope, Syncope Endocrine: reports: Other (Patient is a diabetic was just placed back on metformin) PD PAST MEDICAL HISTORY - Past Medical History Cardiovascular: Hypertension, High cholesterol Respiratory: None Endocrine/Autoimmune: Type 2 diabetes GI: GERD, Colon polyps, Diverticulitis : None HEENT: Chronic vision loss Psych: Depression, Anxiety, ADD/ADHD Musculoskeletal: Gout, Other Derm: Eczema - Past Surgical History Past Surgical History: Yes General: Colonoscopy - Present Medications Home Medications: Ambulatory Orders Medication Instructions Recorded Confirmed Escitalopram Oxalate 20 mg PO BID 11/01/15 02/26/17 Simvastatin 20 mg PO DAILY 09/11/17 Clotrimazole [3-Day Vaginal Cream] 21 gm VG BID #1 cream.appl 05/28/19 Fluconazole [Diflucan] 150 mg PO ONCE #1 tablet 05/28/19 Triamterene/Hydrochlorothiazid 1 tab PO DAILY 05/28/19 05/28/19 [Triamterene-Hctz 37.5-25 mg Cp] amLODIPine [Norvasc] 10 mg PO DAILY 05/28/19 05/28/19 metFORMIN [Glucophage] 500 mg PO DAILY 05/28/19 05/28/19 - Allergies Allergies/Adverse Reactions: Allergies Allergy/AdvReac Type Severity Reaction Status Date / Time No Known Drug Allergies Allergy Verified 05/28/19 20:14 - Social History Does the pt smoke?: No Smoking Status: Never smoker Does the pt drink ETOH?: No Does the pt have substance abuse?: No - Immunizations Immunizations are current?: No - POLST Patient has POLST: No PD ED PE NORMAL - Vitals Vital signs reviewed: Yes - General General: Alert and oriented X 3, No acute distress, Well developed/nourished - HEENT HEENT: Atraumatic, PERRL, EOMI, Other (Dry mucous membranes) - Neck Neck: Supple, no meningeal sign, No adenopathy, No JVD - Cardiac Cardiac: RRR, No murmur - Respiratory Respiratory: No respiratory distress, Clear bilaterally - Abdomen Abdomen: Normal bowel sounds, Soft, Non tender, Non distended, Other (Obese) - Derm Derm: Normal color, Warm and dry, No rash - Extremities Extremities: No deformity, No edema - Neuro Neuro: Alert and oriented X 3, 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 No: Wide QRS Ischemia: Normal ST segments, T wave inversion (V1-V4) Compare to prior EKG: Old EKG unavailable - Labs Labs: Laboratory Tests 05/28/19 05/28/19 05/28/19 20:40 20:40 20:40 WBC 7.7 RBC 4.88 Hgb 15.1 Hct 45.0 MCV 92.2 MCH 30.9 MCHC 33.6 RDW 13.2 Plt Count 262 MPV 9.8 Neut # (Auto) 3.9 Lymph # (Auto) 3.0 [place] # (Auto) 0.5 Eos # (Auto) 0.1 Baso # (Auto) 0.1 Absolute Nucleated RBC 0.00 Nucleated RBC % 0.0 Sodium 140 Potassium 3.6 Chloride 96 L Carbon Dioxide 29 Anion Gap 15.0 H BUN 27 H Creatinine 1.0 Estimated GFR (MDRD) 56 L Glucose 118 H Calcium 9.7 Total Bilirubin 0.8 AST 27 ALT 37 Alkaline Phosphatase 34 L Troponin I High Sens < 2.3 L Total Protein 7.8 Albumin 4.6 Globulin 3.2 Albumin/Globulin Ratio 1.4 Lipase 35 Urine Color Urine Clarity Urine pH Ur Specific [place] Urine Protein Urine Glucose (UA) Urine Ketones Urine Occult Blood Urine Nitrite Urine Bilirubin Urine Urobilinogen Ur Leukocyte Esterase Urine RBC Urine WBC Ur Squamous Epith Cells Urine Bacteria Ur Microscopic Review Urine Culture Comments 05/28/19 21:00 WBC RBC Hgb Hct MCV MCH MCHC RDW Plt Count MPV Neut # (Auto) Lymph # (Auto) [place] # (Auto) Eos # (Auto) Baso # (Auto) Absolute Nucleated RBC Nucleated RBC % Sodium Potassium Chloride Carbon Dioxide Anion Gap BUN Creatinine Estimated GFR (MDRD) Glucose Calcium Total Bilirubin AST ALT Alkaline Phosphatase Troponin I High Sens Total Protein Albumin Globulin Albumin/Globulin Ratio Lipase Urine Color LT. YELLOW Urine Clarity HAZY Urine pH 6.0 Ur Specific [place] 1.015 Urine Protein NEGATIVE Urine Glucose (UA) NEGATIVE Urine Ketones NEGATIVE Urine Occult Blood TRACE-INTA Urine Nitrite NEGATIVE Urine Bilirubin NEGATIVE Urine Urobilinogen 0.2 (NORMAL) Ur Leukocyte Esterase TRACE H Urine RBC 11-25 H Urine WBC 0-3 Ur Squamous Epith Cells MANY Squamous H Urine Bacteria None Seen Ur Microscopic Review INDICATED Urine Culture Comments NOT INDICATED PD MEDICAL DECISION MAKING - ED course Complexity details: reviewed results, re-evaluated patient, d/w patient, d/w family ED course: Patient was given 30 of Toradol IV and stated that her pain was down to about a 2-3 out of 10. She had a CT abdomen pelvis noncontrast without evidence of kidney stone just in July 2018 I do not see any indication to repeat that scan tonight. Her urinalysis had some white blood cells and red blood cells however it is quite a contaminated specimen. I did take a look at her perineal region and there is some erythema and inflammation with some cottage cheese type appearing discharge on the vulva. There is also erythema in the groin with some moisture consistent with a yeast infection. Will treat with Diflucan 1 p.o. and also Monistat cream to just help soothe the external vulva. Patient is discharged home with her in good condition. Departure - Departure Disposition: , Self Care Clinical Impression: Vulvar candidiasis, Left flank pain Condition: Good Instructions: ED Vaginitis Vulvo Ch Follow-Up: Kelin Bass DO [Primary Care Provider] - Prescriptions: Clotrimazole [3-Day Vaginal Cream] 21 gm VG BID #1 cream.appl Fluconazole [Diflucan] 150 mg PO ONCE #1 tablet Comments: He can ice your lower back. Use the Monistat externally just to help soothe the itching. Take the Diflucan tablet 1 time. Follow-up with your primary care provider if you continue to have pain or symptoms of itching. Discharge Date/Time: 05/28/19 22:22
[2019-05-28] MEDS ORDERED: KETOROLAC 30 MG/ML VIAL IVP STA (20:49)
[2019-05-28 20:57] LABS: BASOPHILS # (AUTO) 0.1 10^3/uL (0.0-0.1); BASOPHILS % (AUTO) 0.7 %; EOSINOPHILS # (AUTO) 0.1 10^3/uL (0.0-0.7); EOSINOPHILS % (AUTO) 1.8 %; HGB - HEMOGLOBIN 15.1 g/dL (12.0-16.0); LYMPHOCYTES % (AUTO) 39.4 %; MEAN CORPUSCULAR HEMOGLOBIN 30.9 pg (27.0-31.0); MEAN CORPUSCULAR HGB CONC 33.6 g/dL (32.0-36.0); MEAN CORPUSCULAR VOLUME 92.2 fL (81.0-99.0); MEAN PLATELET VOLUME 9.8 fL (7.9-10.8); MONOCYTES # (AUTO) 0.5 10^3/uL (0.0-1.0); MONOCYTES % (AUTO) 6.7 %; NEUTROPHILS # (AUTO) 3.9 10^3/uL (1.5-6.6); NEUTROPHILS % (AUTO) 51.3 %; PLT - PLATELET COUNT 262 10^3/uL (130-450); RED BLOOD COUNT 4.88 10^6/uL (4.20-5.40); RED CELL DISTRIBUTION WIDTH 13.2 % (12.0-15.0); WHITE BLOOD COUNT 7.7 x10^3/uL (4.8-10.8)
[2019-05-28 21:11] LABS: BILIRUBIN,URINE NEGATIVE (NEGATIVE); GLUCOSE, URINE (UA) NEGATIVE (NEGATIVE); KETONES,URINE (UA) NEGATIVE (NEGATIVE); LEUKOCYTE ESTERASE, URINE TRACE (NEGATIVE); NITRITE,URINE NEGATIVE (NEGATIVE); OCCULT BLOOD,URINE TRACE-INTA (NEGATIVE); PROTEIN,URINE NEGATIVE (NEGATIVE); UROBILINOGEN,URINE 0.2 (NORMAL) E.U./dL (NORMAL)
[2019-05-28 21:21] LABS: ALBUMIN 4.6 g/dL (3.2-5.5); ALBUMIN/GLOBULIN RATIO 1.4 (1.0-2.2); BILIRUBIN,TOTAL 0.8 mg/dL (0.2-1.0); CALCIUM 9.7 mg/dL (8.5-10.3); TOTAL PROTEIN 7.8 g/dL (6.7-8.2)
[2019-05-28 21:22] LABS: CLARITY,URINE HAZY (CLEAR)
[2019-05-28 21:26] LABS: BACTERIA,URINE None Seen /HPF (None Seen); SQUAMOUS EPITHELIAL CELL,UR MANY Squamous (<= Few)
[2019-05-28 22:19] VITALS: BP 122/80
== END 2019-05-28 22:22 | disposition home or self-care (01) ==
LOC: ED 20:07
DX: B37.3 Candidiasis of vulva and vagina (principal); R10.12 Left upper quadrant pain; M54.9 Dorsalgia, unspecified; I10 Essential (primary) hypertension; E11.9 Type 2 diabetes mellitus without complications; Z79.84 Long term (current) use of oral hypoglycemic drugs
CPT/HCPCS: 36415; 80053; 81001; 81003; 83690; 84484; 85025; 87086; 93005; 99284

== ENCOUNTER 2019-08-17 | Emergency (ER) | payer MEDICAID ==
[2019-08-17 01:46] LABS: BASOPHILS % (AUTO) 0.7 %; EOSINOPHILS # (AUTO) 0.2 10^3/uL (0.0-0.7); EOSINOPHILS % (AUTO) 2.9 %; HGB - HEMOGLOBIN 14.2 g/dL (12.0-16.0); LYMPHOCYTES # (AUTO) 2.7 10^3/uL (1.5-3.5); LYMPHOCYTES % (AUTO) 46.3 %; MEAN CORPUSCULAR HEMOGLOBIN 31.2 pg (27.0-31.0); MEAN CORPUSCULAR VOLUME 94.5 fL (81.0-99.0); MONOCYTES # (AUTO) 0.4 10^3/uL (0.0-1.0); MONOCYTES % (AUTO) 6.2 %; NEUTROPHILS # (AUTO) 2.6 10^3/uL (1.5-6.6); NEUTROPHILS % (AUTO) 43.7 %; PLT - PLATELET COUNT 222 10^3/uL (130-450); RED BLOOD COUNT 4.55 10^6/uL (4.20-5.40); RED CELL DISTRIBUTION WIDTH 13.9 % (12.0-15.0); WHITE BLOOD COUNT 5.8 x10^3/uL (4.8-10.8)
--- NOTE | 2019-08-17 02:17 | XRAY Report ---
Reason: Chest pain Procedure Date: 08/17/2019 Accession Number: [id number] / [id number] Procedure: XR - Chest 1 View X-Ray CPT Code: 15325 Final Report FULL RESULT: EXAM: CHEST RADIOGRAPHY EXAM DATE: 08/17/2019 02:08 AM CLINICAL HISTORY: Chest pain. COMPARISON: CHEST 1 VIEW 05/07/2019 11:36 PM. TECHNIQUE: 1 view. FINDINGS: Lungs/Pleura: Clear lungs. No pleural effusion. No pneumothorax. Mediastinum: Within exam limitations, the cardiomediastinal contour is normal. Other: None. IMPRESSION: Normal single view chest radiography. RADIA
[2019-08-17 02:26] LABS: ALBUMIN 4.3 g/dL (3.2-5.5); ALBUMIN/GLOBULIN RATIO 1.2 (1.0-2.2); BILIRUBIN,TOTAL 0.6 mg/dL (0.2-1.0); CALCIUM 9.6 mg/dL (8.5-10.3); CREATININE 1.1 mg/dL (0.4-1.0); TOTAL PROTEIN 7.8 g/dL (6.7-8.2)
--- NOTE | 2019-08-17 03:03 | ED Physician Documentation ---
PD HPI CHEST PAIN - Stated complaint Stated Complaint: CP,LOW BACK PAIN - Chief complaint Chief Complaint: Cardiac - History obtained from History obtained from: Patient, EMS - History of Present Illness Timing - onset: Today (22:00) Timing - onset during: Rest Timing - details: Abrupt onset Pain level max: 5 Pain level now: 2 (chest pain resolved, now only back pain) Quality: Tightness Location: Substernal Radiation: Back Improved by: Nothing Worsened by: Other (no exacerbating factors) Associated symptoms: Shortness of air. No: Nausea, Vomiting Similar symptoms before: Has not had sx before Recently seen: Not recently seen - Additional information Additional information: while at home and at rest, approximately 10 pm tonight, had tightness of mid/low chest radiating bilaterally around to back. mild dyspnea. chest pain resolved [employer], still has mild back pain Review of Systems Constitutional: reports: Reviewed and negative Cardiac: reports: Chest pain / pressure. denies: Palpitations, Pedal edema, Calf pain Respiratory: reports: Dyspnea GI: denies: Abdominal Pain, Nausea, Vomiting : denies: Dysuria, Frequency, Hematuria Musculoskeletal: reports: Back pain PD PAST MEDICAL HISTORY - Past Medical History Past Medical History: Yes Cardiovascular: Hypertension, High cholesterol Respiratory: None Endocrine/Autoimmune: Type 2 diabetes GI: GERD, Colon polyps, Diverticulitis : None HEENT: Chronic vision loss Psych: Depression, Anxiety, ADD/ADHD Musculoskeletal: Gout, Other Derm: Eczema - Past Surgical History Past Surgical History: Yes General: Colonoscopy - Present Medications Home Medications: Ambulatory Orders Medication Instructions Recorded Confirmed Escitalopram Oxalate 20 mg PO BID 11/01/15 02/26/17 Simvastatin 20 mg PO DAILY 09/11/17 Clotrimazole [3-Day Vaginal Cream] 21 gm VG BID #1 cream.appl 05/28/19 Fluconazole [Diflucan] 150 mg PO ONCE #1 tablet 05/28/19 Triamterene/Hydrochlorothiazid 1 tab PO DAILY 05/28/19 05/28/19 [Triamterene-Hctz 37.5-25 mg Cp] amLODIPine [Norvasc] 10 mg PO DAILY 05/28/19 05/28/19 metFORMIN [Glucophage] 500 mg PO DAILY 05/28/19 05/28/19 - Allergies Allergies/Adverse Reactions: Allergies Allergy/AdvReac Type Severity Reaction Status Date / Time No Known Drug Allergies Allergy Verified 05/28/19 20:14 - Social History Does the pt smoke?: No Smoking Status: Never smoker Does the pt drink ETOH?: No Does the pt have substance abuse?: No - Immunizations Immunizations are current?: No - POLST Patient has POLST: No PD ED PE NORMAL - Vitals Vital signs reviewed: Yes - General General: Alert and oriented X 3, No acute distress, Well developed/nourished - Neck Neck: Supple, no meningeal sign - Cardiac Cardiac: RRR, No murmur - Respiratory Respiratory: No respiratory distress, Clear bilaterally - Abdomen Abdomen: Soft, Non distended - Back Back: No CVA TTP - Derm Derm: Normal color, Warm and dry, No rash PD ED PE EXPANDED - Abdomen Abdomen: Tender to palpation, RUQ, Epigastric. No: Rebound, Guarding Results - Vitals Vitals: Oxygen O2 Source Room air - EKG (time done) No standard instances Rate: Rate (enter#) (72) Rhythm: NSR [employer]: Normal Intervals: Normal [place] QRS: Normal Ischemia: Normal ST segments - Labs Labs: Laboratory Tests 08/17/19 08/17/19 08/17/19 01:38 01:55 01:55 WBC 5.8 RBC 4.55 Hgb 14.2 Hct 43.0 MCV 94.5 MCH 31.2 H MCHC 33.0 RDW 13.9 Plt Count 222 MPV 10.0 Neut # (Auto) 2.6 Lymph # (Auto) 2.7 [place] # (Auto) 0.4 Eos # (Auto) 0.2 Baso # (Auto) 0.0 Absolute Nucleated RBC 0.00 Nucleated RBC % 0.0 Sodium 140 Potassium 3.6 Chloride 101 Carbon Dioxide 26 Anion Gap 13.0 BUN 26 H Creatinine 1.1 H Estimated GFR (MDRD) 50 L Glucose 150 H Calcium 9.6 Total Bilirubin 0.6 AST 21 ALT 31 Alkaline Phosphatase 36 L Troponin I High Sens 2.6 Total Protein 7.8 Albumin 4.3 Globulin 3.5 Albumin/Globulin Ratio 1.2 Lipase 39 - Rads (name of study) chest xray Radiology: Prelim report reviewed, See rad report RUQ US Radiology: Prelim report reviewed, See rad report PD MEDICAL DECISION MAKING - ED course Complexity details: reviewed results, re-evaluated patient, considered differential, d/w patient Departure - Departure Disposition: 01 Home, Self Care Clinical Impression: Chest pain Qualifiers: Chest pain type: unspecified Qualified Code(s): R07.9 - Chest pain, unspecified Cholelithiasis Qualifiers: Cholelithiasis location: gallbladder Cholecystitis presence: without cholecystitis Biliary obstruction: without biliary obstruction Qualified Code(s): K80.20 - Calculus of gallbladder without cholecystitis without obstruction Condition: Good Instructions: ED Chest Pain Atypical Unkn Cause, ED Gallstone W Biliary Colic Follow-Up: Kelin Bass DO [Primary Care Provider] - Discharge Date/Time: 08/17/19 05:34
[2019-08-17] MEDS ORDERED: KETOROLAC 30 MG/ML VIAL IVP STA (03:33)
--- NOTE | 2019-08-17 05:07 | Ultrasound Report ---
Reason: RUQ pain, tenderness Procedure Date: 08/17/2019 Accession Number: [id number] / [id number] Procedure: US - Abdomen Limited CPT Code: Final Report FULL RESULT: EXAM: ABDOMEN ULTRASOUND LIMITED, RUQ EXAM DATE: 08/17/2019 04:30 AM. CLINICAL HISTORY: RUQ pain, tenderness. COMPARISON: ABDOMEN/PELVIS W/O 07/28/2018 11:39 PM. TECHNIQUE: Real-time scanning was performed with static images obtained. FINDINGS: Liver: The liver is echogenic, compatible with fatty infiltration. The liver measures 19.4 cm. Main portal vein flow: Hepatopetal. Gallbladder: Cholelithiasis. No wall thickening or pericholecystic fluid. Biliary System: CBD measures 4 mm. No intrahepatic or extrahepatic ductal dilatation. Other: Possible nonobstructing right renal calculus. IMPRESSION: Cholelithiasis. No sonographic evidence of acute cholecystitis. No biliary dilatation. Fatty infiltration of the liver. RADIA
[2019-08-17 05:34] VITALS: BP 107/59
== END 2019-08-17 05:34 | disposition home or self-care (01) ==
LOC: ED
DX: R07.89 Other chest pain (principal); K80.20 Calculus of gallbladder without cholecystitis without obstruction; K76.0 Fatty (change of) liver, not elsewhere classified; M54.5 Low back pain; I10 Essential (primary) hypertension; E11.9 Type 2 diabetes mellitus without complications; Z79.84 Long term (current) use of oral hypoglycemic drugs
CPT/HCPCS: 36415; 71045; 76705; 80053; 83690; 84484; 85025; 93005; 96374; 99284

== ENCOUNTER 2020-03-21 19:03 | Emergency (ER) | payer MEDICAID ==
[2020-03-21] MEDS ORDERED: ONDANSETRON 4 MG/2 ML VIAL IVP STA (19:27)
[2020-03-21] MEDS ORDERED: SODIUM CHLORIDE 0.9% 1,000 ML IV STA (19:27)
[2020-03-21] MEDS ORDERED: MECLIZINE 12.5 MG TABLET PO STA (19:27)
[2020-03-21] MEDS ORDERED: DEXAMETHASONE 10 MG/ML VIAL IVP STA (19:28)
--- NOTE | 2020-03-21 19:31 | ED Physician Documentation ---
History of Present Illness - Stated complaint Stated Complaint: DIZZINESS/VERTIGO - Chief complaint Chief Complaint: Neuro - History obtained from History obtained from: Patient - History of Present Illness Timing: Prior to arrival (1830), Today - Additonal information Additional information: 64-year-old female with a history of hypertension and diabetes was on metformin has developed acute dizziness and nausea. [facility] [place] [facility] getting [facility] for herself and her who is just been discharged from surgery when she began to develop acute dizziness. She states that when she goes to sit up or stand up she is dizzy with the room spinning and then as she is just sitting there without getting up she will have spinning as well. She has had some nausea she has not vomited. She has not had this happen to her previously she denies any acute hearing loss. She does have a family history of vertigo in her mother. She does not know the term Mnire's disease Review of Systems Constitutional: denies: Fever Eyes: denies: Decreased vision, Photophobia Ears: denies: Loss of hearing, Ear pain Nose: denies: Rhinorrhea / runny nose, Congestion Throat: denies: Dental pain / toothache, Sore throat Respiratory: reports: Cough (for 2 months). denies: Dyspnea GI: reports: Nausea, Diarrhea (with the metformin soft stool). denies: Vomiting : reports: Frequency, Incontinent. denies: Dysuria Skin: denies: Rash Musculoskeletal: denies: Neck pain, Back pain, Extremity pain Neurologic: denies: Generalized weakness, Focal weakness, Numbness Endocrine: reports: Polydypsia, Polyuria PD PAST MEDICAL HISTORY - Past Medical History Cardiovascular: Hypertension, High cholesterol Respiratory: None Endocrine/Autoimmune: Type 2 diabetes GI: GERD, Colon polyps, Diverticulitis : None HEENT: Chronic vision loss Psych: Depression, Anxiety, ADD/ADHD Musculoskeletal: Gout, Other Derm: Eczema - Past Surgical History Past Surgical History: Yes General: Colonoscopy - Present Medications Home Medications: Ambulatory Orders Medication Instructions Recorded Confirmed Escitalopram Oxalate 20 mg PO BID 11/01/15 02/26/17 Simvastatin 20 mg PO DAILY 09/11/17 Clotrimazole [3-Day Vaginal Cream] 21 gm VG BID #1 cream.appl 05/28/19 Fluconazole [Diflucan] 150 mg PO ONCE #1 tablet 05/28/19 Triamterene/Hydrochlorothiazid 1 tab PO DAILY 05/28/19 05/28/19 [Triamterene-Hctz 37.5-25 mg Cp] amLODIPine [Norvasc] 10 mg PO DAILY 05/28/19 05/28/19 metFORMIN [Glucophage] 500 mg PO DAILY 05/28/19 05/28/19 Meclizine [Antivert] 25 mg PO Q6H PRN #20 tablet 03/21/20 Ondansetron Odt [Zofran] 4 mg TL Q6H PRN #10 tablet 03/21/20 - Allergies Allergies/Adverse Reactions: Allergies Allergy/AdvReac Type Severity Reaction Status Date / Time No Known Drug Allergies Allergy Verified 03/21/20 19:07 - Social History Does the pt smoke?: No Smoking Status: Never smoker Does the pt drink ETOH?: No Does the pt have substance abuse?: No - Immunizations Immunizations are current?: No - POLST Patient has POLST: No PD ED PE NORMAL - Vitals Vital signs reviewed: Yes (tachy and hypertensive ) - General General: Alert and oriented X 3, No acute distress, Well developed/nourished - HEENT HEENT: Atraumatic, PERRL, EOMI, Ears normal, Pharynx benign, Dentition benign, Other (dry mucous membranes. 3 beats of nystagmus bilat worse to the left small movement. ) - Cardiac Cardiac: RRR, No murmur - Respiratory Respiratory: No respiratory distress, Clear bilaterally - Abdomen Abdomen: Normal bowel sounds, Soft, Non tender, Non distended, No organomegaly - Back Back: No CVA TTP, No spinal TTP - Derm Derm: Normal color, Warm and dry, No rash - Extremities Extremities: No deformity, No edema - Neuro Neuro: Alert and oriented X 3, quarter trimmer 2-12 intact, No motor deficit, No sensory deficit, Normal speech Eye Opening: Spontaneous Motor: Obeys Commands Verbal: Oriented GCS Score: 15 - Psych Psych: Normal mood, Normal affect Results - Vitals Vitals: Vital Signs - 24 hr 03/21/20 03/21/20 19:07 21:01 Temperature 36.4 C L 36.7 C Heart Rate 104 H 95 Respiratory 18 22 Rate Blood Pressure 154/85 H 129/71 O2 Saturation 96 97 Oxygen O2 Source Room air - Labs Labs: Laboratory Tests 03/21/20 03/21/20 03/21/20 19:40 19:40 20:10 WBC 7.2 RBC 4.69 Hgb 15.6 Hct 45.4 MCV 96.8 MCH 33.3 H MCHC 34.4 RDW 13.5 Plt Count 181 MPV 11.1 H Neut # (Auto) 4.5 Lymph # (Auto) 2.1 [place] # (Auto) 0.4 Eos # (Auto) 0.1 Baso # (Auto) 0.1 Absolute Nucleated RBC 0.00 Nucleated RBC % 0.0 Sodium 136 Potassium 3.6 Chloride 97 L Carbon Dioxide 27 Anion Gap 12.0 BUN 22 H Creatinine 1.4 H Estimated GFR (MDRD) 38 L Glucose 147 H Calcium 10.1 Total Bilirubin 1.0 AST 30 ALT 38 Alkaline Phosphatase 39 L Total Protein 8.2 Albumin 4.8 Globulin 3.3 Albumin/Globulin Ratio 1.4 Lipase 30 Urine Color YELLOW Urine Clarity CLEAR Urine pH 5.5 Ur Specific [place] 1.025 Urine Protein TRACE Urine Glucose (UA) NEGATIVE Urine Ketones TRACE Urine Occult Blood SMALL H Urine Nitrite NEGATIVE Urine Bilirubin NEGATIVE Urine Urobilinogen 0.2 (NORMAL) Ur Leukocyte Esterase SMALL H Urine RBC 0-5 Urine WBC 4-5 Ur Squamous Epith Cells MANY Squamous H Urine Bacteria Rare Ur Microscopic Review INDICATED Urine Culture Comments NOT INDICATED Procedures - IVC sono (time) 1923 Bedside IVC sono: IVC measures (cm) (1.12), Dehydration (est 1+ liter deficit) PD MEDICAL DECISION MAKING - ED course Complexity details: reviewed old records, reviewed results, re-evaluated patient, considered differential, d/w patient ED course: 64-year-old diabetic female with acute dizziness has nystagmus on examination and increased dizziness with head movement. She is also found to be dehydrated on interrogation the inferior vena cava and she has had some polyuria polydipsia recently. She is on hydrochlorothiazide triamterene. She is found to be about 1 L deficit. This looks like acute labyrinthitis, (we have had recent cases), and some dehydration. She is administered a liter of fluid 4 mg of Zofran 10 mg of dexamethasone and 25 mg of meclizine and this helps quite a bit. Departure - Departure Disposition: 01 Home, Self Care Clinical Impression: Dehydration Labyrinthitis, acute Qualifiers: Laterality: bilateral Qualified Code(s): H83.03 - Labyrinthitis, bilateral Condition: Stable Instructions: ED Dehydration, ED Labyrinthitis Follow-Up: Kelin Bass DO [Primary Care Provider] - Prescriptions: Meclizine [Antivert] 25 mg PO Q6H PRN #20 tablet PRN Reason: Dizziness Ondansetron Odt [Zofran] 4 mg TL Q6H PRN #10 tablet PRN Reason: Nausea / Vomiting Discharge Date/Time: 03/21/20 21:23
[2020-03-21 19:48] LABS: BASOPHILS # (AUTO) 0.1 10^3/uL (0.0-0.1); BASOPHILS % (AUTO) 0.7 %; EOSINOPHILS # (AUTO) 0.1 10^3/uL (0.0-0.7); EOSINOPHILS % (AUTO) 1.8 %; HGB - HEMOGLOBIN 15.6 g/dL (12.0-16.0); LYMPHOCYTES # (AUTO) 2.1 10^3/uL (1.5-3.5); LYMPHOCYTES % (AUTO) 29.6 %; MEAN CORPUSCULAR HEMOGLOBIN 33.3 pg (27.0-31.0); MEAN CORPUSCULAR HGB CONC 34.4 g/dL (32.0-36.0); MEAN CORPUSCULAR VOLUME 96.8 fL (81.0-99.0); MEAN PLATELET VOLUME 11.1 fL (7.9-10.8); MONOCYTES # (AUTO) 0.4 10^3/uL (0.0-1.0); MONOCYTES % (AUTO) 5.3 %; NEUTROPHILS # (AUTO) 4.5 10^3/uL (1.5-6.6); NEUTROPHILS % (AUTO) 62.3 %; PLT - PLATELET COUNT 181 10^3/uL (130-450); RED BLOOD COUNT 4.69 10^6/uL (4.20-5.40); RED CELL DISTRIBUTION WIDTH 13.5 % (12.0-15.0); WHITE BLOOD COUNT 7.2 x10^3/uL (4.8-10.8)
[2020-03-21 19:57] LABS: ALBUMIN 4.8 g/dL (3.2-5.5); ALBUMIN/GLOBULIN RATIO 1.4 (1.0-2.2); CALCIUM 10.1 mg/dL (8.5-10.3); CREATININE 1.4 mg/dL (0.4-1.0); TOTAL PROTEIN 8.2 g/dL (6.7-8.2)
[2020-03-21 20:17] LABS: BILIRUBIN,URINE NEGATIVE (NEGATIVE); GLUCOSE, URINE (UA) NEGATIVE (NEGATIVE); KETONES,URINE (UA) TRACE mg/dL (NEGATIVE); LEUKOCYTE ESTERASE, URINE SMALL (NEGATIVE); NITRITE,URINE NEGATIVE (NEGATIVE); OCCULT BLOOD,URINE SMALL (NEGATIVE); PH,URINE 5.5 PH (5.0-7.5); PROTEIN,URINE TRACE mg/dL (NEGATIVE); UROBILINOGEN,URINE 0.2 (NORMAL) E.U./dL (NORMAL)
[2020-03-21 20:20] LABS: CLARITY,URINE CLEAR (CLEAR)
[2020-03-21 20:27] LABS: BACTERIA,URINE Rare /HPF (None Seen); RBC,URINE 0-5 /HPF (0-5); SQUAMOUS EPITHELIAL CELL,UR MANY Squamous (<= Few)
[2020-03-21 21:02] VITALS: BP 129/71
[2020-03-21] MEDS: MECLIZINE 12.5 MG TABLET PO STA (21:20)
== END 2020-03-21 21:23 | disposition home or self-care (01) ==
LOC: ED 19:03
DX: H83.03 Labyrinthitis, bilateral (principal); E86.0 Dehydration; E11.9 Type 2 diabetes mellitus without complications; Z79.84 Long term (current) use of oral hypoglycemic drugs; I10 Essential (primary) hypertension
CPT/HCPCS: 36415; 80053; 81001; 83690; 85025; 96361; 96374; 99283; 99284; A9270; 81003; 87086

== ENCOUNTER 2020-05-22 23:02 | Emergency (ER) | payer MEDICAID ==
[2020-05-22] MEDS ORDERED: SODIUM CHLORIDE 0.9% 1,000 ML IV STA (23:26)
[2020-05-22 23:51] LABS: BASOPHILS # (AUTO) 0.1 10^3/uL (0.0-0.1); BASOPHILS % (AUTO) 0.5 %; EOSINOPHILS % (AUTO) 0.4 %; LYMPHOCYTES # (AUTO) 2.3 10^3/uL (1.5-3.5); MEAN CORPUSCULAR HEMOGLOBIN 32.6 pg (27.0-31.0); MEAN CORPUSCULAR HGB CONC 34.5 g/dL (32.0-36.0); MEAN CORPUSCULAR VOLUME 94.4 fL (81.0-99.0); MEAN PLATELET VOLUME 9.7 fL (7.9-10.8); MONOCYTES # (AUTO) 0.7 10^3/uL (0.0-1.0); MONOCYTES % (AUTO) 6.6 %; NEUTROPHILS # (AUTO) 7.8 10^3/uL (1.5-6.6); PLT - PLATELET COUNT 195 10^3/uL (130-450); RED CELL DISTRIBUTION WIDTH 12.8 % (12.0-15.0)
--- NOTE | 2020-05-22 23:53 | ED Physician Documentation ---
PD HPI ABD PAIN - Stated complaint Stated Complaint: ABDOMINAL PX - Chief complaint Chief Complaint: Abd Pain - History obtained from History obtained from: Patient - History of Present Illness Timing - onset: Today Timing - duration: Hours Timing - details: Abrupt onset, Still present, Waxing and waning Quality: Sharp, Pain Location: LLQ Improved by: Laying still Worsened by: Moving, Position, Palpation Associated symptoms: Nausea, Constipation (X 2 days). No: Vomiting Similar symptoms before: Diagnosis (diverticulitis) Recently seen: Not recently seen - Additional information Additional information: 64-year-old diabetic female with a history of diverticulitis has developed some pain in the left side of her abdomen consistent with what she is had previously with diverticulitis. She has had this pain intermittently throughout the day today there are periods of time when her pain is improved and there are times when she has severe pain and this is limiting her ability to do anything. She has not had fever. She does have some nocturia and has not been able to make it to the bathroom on a number of occasions. Review of Systems Constitutional: denies: Fever Eyes: denies: Decreased vision Ears: denies: Ear pain Nose: denies: Rhinorrhea / runny nose, Congestion Throat: denies: Sore throat Cardiac: denies: Chest pain / pressure, Palpitations Respiratory: denies: Dyspnea, Cough GI: reports: Abdominal Pain, Nausea, Constipation : reports: Frequency, Incontinent. denies: Dysuria Musculoskeletal: denies: Neck pain, Back pain, Extremity pain Neurologic: reports: Generalized weakness. denies: Focal weakness, Numbness Endocrine: reports: Polydypsia, Polyuria PD PAST MEDICAL HISTORY - Past Medical History Cardiovascular: Hypertension, High cholesterol Respiratory: None Endocrine/Autoimmune: Type 2 diabetes GI: GERD, Colon polyps, Diverticulitis : None HEENT: Chronic vision loss Psych: Depression, Anxiety, ADD/ADHD Musculoskeletal: Gout, Other Derm: Eczema - Past Surgical History Past Surgical History: Yes General: Colonoscopy - Present Medications Home Medications: Ambulatory Orders Medication Instructions Recorded Confirmed Escitalopram Oxalate 20 mg PO BID 11/01/15 02/26/17 Simvastatin 20 mg PO DAILY 09/11/17 Clotrimazole [3-Day Vaginal Cream] 21 gm VG BID #1 cream.appl 05/28/19 Fluconazole [Diflucan] 150 mg PO ONCE #1 tablet 05/28/19 Triamterene/Hydrochlorothiazid 1 tab PO DAILY 05/28/19 05/28/19 [Triamterene-Hctz 37.5-25 mg Cp] amLODIPine [Norvasc] 10 mg PO DAILY 05/28/19 05/28/19 metFORMIN [Glucophage] 500 mg PO DAILY 05/28/19 05/28/19 Meclizine [Antivert] 25 mg PO Q6H PRN #20 tablet 03/21/20 Ondansetron Odt [Zofran] 4 mg TL Q6H PRN #10 tablet 03/21/20 Ciprofloxacin HCl [Cipro] 500 mg PO BID #14 tablet 05/23/20 metroNIDAZOLE [Flagyl] 500 mg PO BID #14 tablet 05/23/20 - Allergies Allergies/Adverse Reactions: Allergies Allergy/AdvReac Type Severity Reaction Status Date / Time No Known Drug Allergies Allergy Verified 05/22/20 23:07 - Social History Does the pt smoke?: No Smoking Status: Never smoker Does the pt drink ETOH?: No Does the pt have substance abuse?: No - Immunizations Immunizations are current?: No - POLST Patient has POLST: No PD ED PE NORMAL - Vitals Vital signs reviewed: Yes (Tachycardic and hypertensive) - General General: Alert and oriented X 3, Other (The patient is periodically whining and pain.) - HEENT HEENT: Atraumatic, PERRL, EOMI - Neck Neck: Supple, no meningeal sign, No bony TTP - Cardiac Cardiac: No murmur, Other (Tachycardic to 120) - Respiratory Respiratory: No respiratory distress, Clear bilaterally - Abdomen Abdomen: Normal bowel sounds, Soft, Non tender, Non distended, No organomegaly - Back Back: No CVA TTP, No spinal TTP - Derm Derm: Normal color, Warm and dry, No rash - Extremities Extremities: No deformity, No edema - Neuro Neuro: Alert and oriented X 3, education department registrar 2-12 intact, No motor deficit, No sensory deficit, Normal speech Eye Opening: Spontaneous Motor: Obeys Commands Verbal: Oriented GCS Score: 15 - Psych Psych: Normal mood, Normal affect Results - Vitals Vitals: Vital Signs - 24 hr 05/22/20 05/22/20 23:03 23:30 Temperature 37 C Heart Rate 124 H 111 H Respiratory 16 24 Rate Blood Pressure 150/116 H 146/83 H O2 Saturation 97 95 Oxygen O2 Source Room air - Labs Labs: Laboratory Tests 05/22/20 05/22/20 05/22/20 23:45 23:45 23:45 WBC 11.0 H RBC 4.30 Hgb 14.0 Hct 40.6 MCV 94.4 MCH 32.6 H MCHC 34.5 RDW 12.8 Plt Count 195 MPV 9.7 Neut # (Auto) 7.8 H Lymph # (Auto) 2.3 [place] # (Auto) 0.7 Eos # (Auto) 0.0 Baso # (Auto) 0.1 Absolute Nucleated RBC 0.00 Nucleated RBC % 0.0 Sodium 135 Potassium 3.0 L Chloride 96 L Carbon Dioxide 25 Anion Gap 14.0 H BUN 16 Creatinine 1.0 Estimated GFR (MDRD) 56 L Glucose 162 H Lactic Acid 1.1 Calcium 9.1 Total Bilirubin 0.9 AST 19 ALT 28 Alkaline Phosphatase 44 Total Protein 7.6 Albumin 4.1 Globulin 3.5 Albumin/Globulin Ratio 1.2 Lipase 23 Urine Color Urine Clarity Urine pH Ur Specific [place] Urine Protein Urine Glucose (UA) Urine Ketones Urine Occult Blood Urine Nitrite Urine Bilirubin Urine Urobilinogen Ur Leukocyte Esterase Ur Microscopic Review Urine Culture Comments 05/23/20 00:55 WBC RBC Hgb Hct MCV MCH MCHC RDW Plt Count MPV Neut # (Auto) Lymph # (Auto) [place] # (Auto) Eos # (Auto) Baso # (Auto) Absolute Nucleated RBC Nucleated RBC % Sodium Potassium Chloride Carbon Dioxide Anion Gap BUN Creatinine Estimated GFR (MDRD) Glucose Lactic Acid Calcium Total Bilirubin AST ALT Alkaline Phosphatase Total Protein Albumin Globulin Albumin/Globulin Ratio Lipase Urine Color YELLOW Urine Clarity CLEAR Urine pH 5.5 Ur Specific [place] 1.010 Urine Protein NEGATIVE Urine Glucose (UA) NEGATIVE Urine Ketones 15 H Urine Occult Blood TRACE-INTA Urine Nitrite NEGATIVE Urine Bilirubin NEGATIVE Urine Urobilinogen 0.2 (NORMAL) Ur Leukocyte Esterase NEGATIVE Ur Microscopic Review NOT INDICATED Urine Culture Comments NOT INDICATED - Rads (name of study) CT abdomen pelvis with Radiology: Prelim report reviewed (Impression: Acute sigmoid diverticulitis without complicating features. Cholelithiasis and nonspecific gallbladder distention.), EMP read indepedently, See rad report Procedures - IVC sono (time) 2320 Bedside IVC sono: IVC measures (cm) (0.71), IVC collapsed c insp (cm) (complete), Profound dehydration (est 3 liter deficit) PD MEDICAL DECISION MAKING - ED course Complexity details: reviewed old records, reviewed results, re-evaluated patient, considered differential, d/w patient ED course: 64-year-old female with a history of diverticulitis and diabetes comes to the emergency department with intermittent severe left-sided abdominal pain. When I examined the patient she has no specific tenderness. She has had intermittent pain severe and when I walked into the room she was having an episode of pain.This resolved and on examination the patient was without specific tenderness.She has a history of diabetes and is found to be profoundly dehydrated on interrogation the inferior vena cava. An IV is begun she is given intravenous saline and work-up to include urinalysis and a CT scan of the abdomen pelvis is undertaken. The patient has persistent tenderness in the left lower quadrant and she does have obvious inflammation on her CT scan consistent with acute diverticulitis without complication. She has white blood cell count of 11,000 her lactate is normal and she is administered a dose of Cipro intravenously here as well as 2 L of saline and she is given a dose of oral Flagyl.She has had diverticulitis previously remembers taking these 2 medications successfully and she does not drink alcohol. Departure - Departure Disposition: 01 Home, Self Care Clinical Impression: Dehydration, Diverticulitis of gastrointestinal tract Condition: Stable Instructions: ED Dehydration, ED Diverticulitis Follow-Up: Kelin Bass DO [Primary Care Provider] - Prescriptions: Ciprofloxacin HCl [Cipro] 500 mg PO BID #14 tablet metroNIDAZOLE [Flagyl] 500 mg PO BID #14 tablet
[2020-05-23 00:03] LABS: ALBUMIN 4.1 g/dL (3.2-5.5); ALBUMIN/GLOBULIN RATIO 1.2 (1.0-2.2); BILIRUBIN,TOTAL 0.9 mg/dL (0.2-1.0); CALCIUM 9.1 mg/dL (8.5-10.3); TOTAL PROTEIN 7.6 g/dL (6.7-8.2)
[2020-05-23] MEDS ORDERED: IOVERSOL 320 100 ML VIAL IVP ONE ×2 (00:04→00:32)
[2020-05-23] MEDS ORDERED: CIPROFLOXACIN 400 MG/200 ML 400 MG/200 ML BAG IV STA (00:41)
[2020-05-23 01:00] LABS: BILIRUBIN,URINE NEGATIVE (NEGATIVE); GLUCOSE, URINE (UA) NEGATIVE (NEGATIVE); KETONES,URINE (UA) 15 mg/dL (NEGATIVE); LEUKOCYTE ESTERASE, URINE NEGATIVE (NEGATIVE); NITRITE,URINE NEGATIVE (NEGATIVE); OCCULT BLOOD,URINE TRACE-INTA (NEGATIVE); PH,URINE 5.5 PH (5.0-7.5); PROTEIN,URINE NEGATIVE (NEGATIVE); UROBILINOGEN,URINE 0.2 (NORMAL) E.U./dL (NORMAL)
[2020-05-23 01:01] LABS: CLARITY,URINE CLEAR (CLEAR)
[2020-05-23] MEDS ORDERED: metroNIDAZOLE 250 MG TABLET PO STA (01:05)
[2020-05-23] MEDS ORDERED: SODIUM CHLORIDE 0.9% 1,000 ML IV STA (01:10)
[2020-05-23] MEDS ORDERED: ACETAMINOPHEN 325 MG TABLET PO STA (01:10)
[2020-05-23 02:52] VITALS: BP 136/79
--- NOTE | 2020-05-23 08:53 | CT Report ---
PROCEDURE: Abdomen/Pelvis W INDICATIONS: LLQ pain hx/o divertciulitis CONTRAST: IV CONTRAST: Optiray 320 ml: 100 PO CONTRAST: *NO PO CONTRAST TECHNIQUE: After the administration of nonionic contrast, 5 mm thick sections acquired from the diaphragms to th e symphysis. 5 mm thick coronal and sagittal reformats were acquired. For radiation dose reduction, the following was used: automated exposure control, adjustment of mA and/or kV according to patient size. COMPARISON: Ultrasound scanning of the abdomen 08/17/2019. FINDINGS: Image quality: Excellent. ABDOMEN: Lung bases: Lung bases are clear. Heart size is normal. Solid organs: Liver and spleen are normal in size and enhancement. Gallbladder contains numerous mo derate sized stones also previously documented by ultrasound scanning Biliary system is non dilated. Pancreas enhances normally. No adrenal nodules. Kidneys demonstrate normal size and enhancement, without hydronephrosis. Peritoneum and bowel: Bowel loops demonstrate normal wall thickness and caliber. No free fluid or a ir. Nodes and vessels: No retroperitoneal or mesenteric adenopathy by size criteria. Aorta and inferior vena cava are normal in size. Miscellaneous: No ventral hernias. PELVIS: Genitourinary: Bladder wall thickness is normal. Miscellaneous: No inguinal hernias or adenopathy. Acute diverticulitis at the sigmoid colon, modera te in severity but without acute or chronic abscess formation in the peridiverticular soft tissues. Bones: No suspicious bony lesions. No vertebral body compression fractures. IMPRESSION: Acute sigmoid diverticulitis, moderate in severity, without peridiverticular abscess. Stones fill the gallbladder lumen, but there is no sign of acute cholecystitis or biliary obstruction . These calculi were documented by ultrasound 08/17/2019. Current findings consistent with the preliminary interpretation. Reviewed by: Leonardo Childers MD on 05/23/2020 8:51 AM PST Approved by: Leonardo Childers MD on 05/23/2020 8:51 AM PST Station ID: [id number]
== END 2020-05-23 02:35 | disposition home or self-care (01) ==
LOC: ED 23:02
DX: K57.32 Diverticulitis of large intestine without perforation or abscess without bleeding (principal); E86.0 Dehydration; K80.20 Calculus of gallbladder without cholecystitis without obstruction; R35.1 Nocturia; I10 Essential (primary) hypertension; E11.9 Type 2 diabetes mellitus without complications; Z79.84 Long term (current) use of oral hypoglycemic drugs
CPT/HCPCS: 36415; 74177; 80053; 81003; 83605; 83690; 85025; 87040; 96361; 96365; 99284; A9270; Q9967; 81001; 87086

== ENCOUNTER 2020-07-16 11:54 | Outpatient (CLI) | payer MEDICAID ==
[2020-07-16 12:20] LABS: BASOPHILS % (AUTO) 0.7 %; EOSINOPHILS % (AUTO) 15.5 %; HGB - HEMOGLOBIN 17.6 g/dL (12.0-16.0); LYMPHOCYTES % (AUTO) 29.5 %; MEAN CORPUSCULAR HEMOGLOBIN 31.8 pg (27.0-31.0); MEAN CORPUSCULAR HGB CONC 34.9 g/dL (32.0-36.0); MEAN CORPUSCULAR VOLUME 91.2 fL (81.0-99.0); MONOCYTES % (AUTO) 6.9 %; NEUTROPHILS % (AUTO) 47.1 %; PLT - PLATELET COUNT 299 10^3/uL (130-450); RED BLOOD COUNT 5.54 10^6/uL (4.20-5.40); RED CELL DISTRIBUTION WIDTH 12.9 % (12.0-15.0); VBG PH 7.341 (7.31-7.41); WHITE BLOOD COUNT 7.4 x10^3/uL (4.8-10.8)
[2020-07-16 12:23] LABS: ABNORMAL LYMPHS % (MANUAL) 0 %; BAND NEUTROPHILS % (MANUAL) 0 %
[2020-07-16 12:40] LABS: ALBUMIN 5.3 g/dL (3.2-5.5); ALBUMIN/GLOBULIN RATIO 1.4 (1.0-2.2); ALKALINE PHOSPHATASE 48 IU/L (42-121); ALT ALANINE AMINOTRANSFERASE 40 IU/L (10-60); AST ASPARTATE AMINOTRANSFERASE 30 IU/L (10-42); BILIRUBIN,TOTAL 1.2 mg/dL (0.2-1.0); BUN - BLOOD UREA NITROGEN 26 mg/dL (6-20); CALCIUM 10.9 mg/dL (8.5-10.3); CARBON DIOXIDE - CO2 26 mmol/L (21-32); CHLORIDE 89 mmol/L (101-111); CHOL/HDL RATIO 3.4 (<4.4); CHOLESTEROL 182 mg/dL; CREATININE 1.4 mg/dL (0.4-1.0); GLUCOSE 90 mg/dL (70-100); HDL CHOLESTEROL 53 mg/dL; LDL CHOLESTEROL,CALCULATED 85 mg/dL; LDL/HDL RATIO 1.6 (<4.4); SODIUM 140 mmol/L (135-145); TOTAL PROTEIN 9.2 g/dL (6.7-8.2); VLDL CHOLESTEROL 44 mg/dL
[2020-07-16 13:10] LABS: BASOPHILS # (MANUAL) 0.1 10^3/uL (0-0.1); BASOPHILS % (MANUAL) 2 %; EOSINOPHILS # (MANUAL) 0.2 10^3/uL (0-0.7); LYMPHOCYTES # (MANUAL) 2.1 10^3/uL (1.5-3.5); LYMPHOCYTES % (MANUAL) 28 %; MONOCYTES # (MANUAL) 0.4 10^3/uL (0.0-1.0)
[2020-07-16 13:11] LABS: PLATELET ESTIMATE, MANUAL NORMAL (130-450,000) (NORMAL); PLATELET MORPHOLOGY NORMAL APPEARANCE (NORMAL); RBC MORPHOLOGY (MULTIPLE) NORMAL APPEARANCE (NORMAL)
[2020-07-16 13:16] LABS: HEMOGLOBIN A1c% 6.2 % (4.27-6.07)
[2020-07-17 15:24] LABS: CREATININE,URINE 156.6 mg/dL; MICROALBUMIN,URINE 3.6 mg/dL (0-300.0)
== END 2020-07-16 11:55 | disposition home or self-care (01) ==
LOC: LAB 11:54
PROVIDERS: ATTEND Family Medicine
DX: E11.9 Type 2 diabetes mellitus without complications (principal); E83.52 Hypercalcemia
CPT/HCPCS: 36415; 80053; 80061; 82043; 82306; 82330; 82570; 83036; 83721; 83970; 84443; 85025

== ENCOUNTER → 2020-07-17 | Outpatient (CLI) | payer MEDICAID ==
[2020-08-02 11:49] LABS: CREATININE,URINE 156.6 mg/dL; MICROALBUMIN,URINE 3.6 mg/dL (0-300.0)
== END ==
LOC: LAB.R 10:00
PROVIDERS: ATTEND Family Medicine
DX: E11.9 Type 2 diabetes mellitus without complications (principal)
CPT/HCPCS: 82043; 82570

== ENCOUNTER 2020-07-31 08:00 | Outpatient (CLI) | payer MEDICAID ==
[2020-07-31 12:02] LABS: BASOPHILS % (AUTO) 0.7 %; EOSINOPHILS # (AUTO) 0.1 10^3/uL (0.0-0.7); EOSINOPHILS % (AUTO) 1.9 %; LYMPHOCYTES # (AUTO) 2.1 10^3/uL (1.5-3.5); LYMPHOCYTES % (AUTO) 34.9 %; MEAN CORPUSCULAR HEMOGLOBIN 31.5 pg (27.0-31.0); MEAN CORPUSCULAR HGB CONC 34.3 g/dL (32.0-36.0); MEAN CORPUSCULAR VOLUME 91.8 fL (81.0-99.0); MEAN PLATELET VOLUME 10.6 fL (7.9-10.8); MONOCYTES # (AUTO) 0.3 10^3/uL (0.0-1.0); MONOCYTES % (AUTO) 5.8 %; NEUTROPHILS # (AUTO) 3.3 10^3/uL (1.5-6.6); NEUTROPHILS % (AUTO) 56.5 %; PLT - PLATELET COUNT 209 10^3/uL (130-450); RED BLOOD COUNT 4.76 10^6/uL (4.20-5.40); RED CELL DISTRIBUTION WIDTH 12.6 % (12.0-15.0); WHITE BLOOD COUNT 5.9 x10^3/uL (4.8-10.8)
[2020-07-31 12:13] LABS: CALCIUM 10.2 mg/dL (8.5-10.3)
[2020-08-02 12:41] LABS: ALBUMIN 4.3 g/dL (3.8-4.8); ALPHA 1 GLOBULIN 0.3 g/dL (0.2-0.3); ALPHA 2 GLOBULIN 0.8 g/dL (0.5-0.9); BETA 1 GLOBULIN 0.5 g/dL (0.4-0.6); BETA 2 GLOBULIN 0.5 g/dL (0.2-0.5); GAMMA GLOBULIN 0.9 g/dL (0.8-1.7)
[2020-08-03 16:06] LABS: ERYTHROPOIETIN 12.7 mIU/mL (2.6-18.5)
== END 2020-07-31 23:59 | disposition home or self-care (01) ==
LOC: LAB 08:00
PROVIDERS: ATTEND Family Medicine
DX: E87.6 Hypokalemia (principal); D75.1 Secondary polycythemia; E83.52 Hypercalcemia
CPT/HCPCS: 36415; 80048; 81270; 82668; 84155; 84165; 85025

== ENCOUNTER 2020-07-31 11:00 | Outpatient (CLI) | payer MEDICAID ==
--- NOTE | 2020-07-31 11:40 | XRAY Report ---
PROCEDURE: Lumbar Spine 2 View INDICATIONS: ACUTE LOW BACK PAIN, NECK PAIN TECHNIQUE: 2 views of the lumbar spine were acquired. COMPARISON: None. FINDINGS: Bones: 5 [id number]-[id number] vertebrae are present. There is normal bony alignment. No vertebral body compression fractures. No suspicious bony lesions. Mild multilevel endplate osteophyte formation an d facet hypertrophy, worst within the mid and lower lumbar spine. Soft tissues: Overlying bowel gas pattern is normal. No suspicious soft tissue calcifications. IMPRESSION: 1. Multilevel degenerative disc and facet disease. 2. No acute fracture. No osseous lesion. If symptoms and/or clinical suspicion for pathology continue , further assessment with repeat plain films, or advanced imaging (e.g., CT, MRI, or bone scan) is re commended for further assessment. Reviewed by: Isidro Gaona MD on 07/31/2020 11:39 AM PST Approved by: Isidro Gaona MD on 07/31/2020 11:39 AM PST Station ID: [id number]
--- NOTE | 2020-07-31 11:42 | XRAY Report ---
PROCEDURE: Cervical Spine 2 View INDICATIONS: ACUTE LOW BACK PAIN, NECK PAIN TECHNIQUE: 4 view(s) of the cervical spine were acquired. COMPARISON: None. FINDINGS: Bones: No fractures or dislocations to the C7 level. The lateral masses of C1 appear intact on t he odontoid view. No suspicious bony lesions. Mild multilevel endplate osteophyte formation and fac et hypertrophy. Soft tissues: No prevertebral soft tissue swelling. IMPRESSION: 1. Multilevel degenerative disc and facet disease. 2. No acute fracture. No osseous lesion. If symptoms and/or clinical suspicion for pathology continue , further assessment with repeat plain films, or advanced imaging (e.g., CT, MRI, or bone scan) is re commended for further assessment. Reviewed by: Isidro Gaona MD on 07/31/2020 11:40 AM PST Approved by: Isidro Gaona MD on 07/31/2020 11:40 AM PST Station ID: [id number]
== END 2020-07-31 11:01 | disposition home or self-care (01) ==
LOC: DI 11:00
PROVIDERS: ATTEND Family Medicine
DX: M47.812 Spondylosis without myelopathy or radiculopathy, cervical region (principal); M50.30 Other cervical disc degeneration, unspecified cervical region; M47.816 Spondylosis without myelopathy or radiculopathy, lumbar region; M51.36 Other intervertebral disc degeneration, lumbar region

== ENCOUNTER 2020-08-09 12:38 | Outpatient (CLI) | payer MEDICAID ==
--- NOTE | 2020-08-10 07:57 | Mammography Report ---
BILATERAL DIGITAL SCREENING MAMMOGRAM 3D/2D: 08/09/2020 CLINICAL: Routine screening. Comparison is made to exams dated: 11/09/2018 mammogram, 09/02/2016 mammogram, and 03/29/2015 mammogram - [facility]. There are scattered fibroglandular elements in both breasts. No significant masses, calcifications, or other findings are seen in either breast. There has been no significant interval change. IMPRESSION: NEGATIVE There is no mammographic evidence of malignancy. A 1 year screening mammogram is recommended. This exam was interpreted at Station ID: [id number]. NOTE: For mammograms, a report in lay terms will be sent to the patient. Approximately 15% of breast malignancies will not be visualized mammographically. In the management of a palpable breast mass, a negative mammogram must not discourage biopsy of a clinically suspicious lesion. Electronically Signed By: Stefano Taylor M.D. [email or web address]:08/09/2020 13:23:43 ACR BI-RADS Category 1: Negative [id number] PARENCHYMAL PATTERN: (A) - The breast(s) demonstrate(s) scattered fibroglandular densities. BI-RADS CATEGORY: (1) - 1 RECOMMENDATION: (ANNUAL) - Recommend routine annual screening mammography. [id number] 1 year screening LATERALITY: (B)
== END 2020-08-09 12:39 | disposition home or self-care (01) ==
LOC: DI.N 12:38
DX: Z12.31 Encounter for screening mammogram for malignant neoplasm of breast (principal)

== ENCOUNTER 2020-08-14 08:00 | Outpatient (CLI) | payer MEDICAID ==
[2020-08-14 13:20] LABS: CLARITY,URINE CLEAR (CLEAR); GLUCOSE, URINE (UA) NEGATIVE (NEGATIVE); KETONES,URINE (UA) 40 mg/dL (NEGATIVE); LEUKOCYTE ESTERASE, URINE NEGATIVE (NEGATIVE); NITRITE,URINE NEGATIVE (NEGATIVE); OCCULT BLOOD,URINE TRACE-INTA (NEGATIVE); PH,URINE 5.5 PH (5.0-7.5); PROTEIN,URINE NEGATIVE (NEGATIVE); UROBILINOGEN,URINE 0.2 (NORMAL) E.U./dL (NORMAL)
[2020-08-14 13:24] LABS: BILIRUBIN,URINE NEGATIVE (NEGATIVE); ICTOTEST,URINE NEGATIVE
[2020-08-14 13:26] LABS: BACTERIA,URINE Rare /HPF (None Seen); CASTS, URINE 0-2 Hyaline Casts /LPF; MUCUS,URINE Few Strands; RBC,URINE 0-5 /HPF (0-5); SQUAMOUS EPITHELIAL CELL,UR FEW Squamous (<= Few)
[2020-08-14 13:29] LABS: CALCIUM 9.5 mg/dL (8.5-10.3)
== END 2020-08-14 23:59 | disposition home or self-care (01) ==
LOC: LAB 08:00
PROVIDERS: ATTEND Family Medicine
DX: N17.9 Acute kidney failure, unspecified (principal)
CPT/HCPCS: 36415; 80048; 81001

== ENCOUNTER 2021-02-09 20:10 | Outpatient (CLI) | payer MEDICAID | END 2021-02-09 20:11 | disposition critical access hospital (66) | LOC: EMS 20:10 | DX: M79.10 Myalgia, unspecified site (principal); R50.9 Fever, unspecified | CPT/HCPCS: A0425; A0429; A0999 ==

== ENCOUNTER 2021-02-09 20:20 | Emergency (ER) | payer MEDICAID ==
[2021-02-09] MEDS ORDERED: ACETAMINOPHEN 325 MG TABLET PO STA (21:01)
[2021-02-09 22:36] LABS: B. PARAPERTUSSIS- RESP PCR PAN NOT DETECTED; B. PERTUSSIS- RESP PCR PANEL NOT DETECTED; C. PNEUMONIAE- RESP PCR PANEL NOT DETECTED; CORONAVIRUS 229E-RESP PCR NOT DETECTED; CORONAVIRUS HKU1-RESP PCR NOT DETECTED; CORONAVIRUS NL63-RESP PCR NOT DETECTED; CORONAVIRUS OC43-RESP PCR NOT DETECTED; HUMAN METAPNEUMOVIRUS NOT DETECTED; INFLUENZA A- RESP PCR PANEL NOT DETECTED; INFLUENZA B - RESP PCR PANEL NOT DETECTED; M. PNEUMONIAE- RESP PCR PANEL NOT DETECTED; PARAINFLUENZA VIRUS 1 NOT DETECTED; PARAINFLUENZA VIRUS 2 NOT DETECTED; PARAINFLUENZA VIRUS 3 NOT DETECTED; PARAINFLUENZA VIRUS 4 NOT DETECTED; RHINOVIRUS/ENTEROVIRUS NOT DETECTED; RSV- RESP PCR PANEL NOT DETECTED; SARS-CoV-2 -RESP PCR PANEL DETECTED
[2021-02-10 00:13] VITALS: BP 125/79
--- NOTE | 2021-02-10 00:43 | ED Physician Documentation ---
History of Present Illness - Stated complaint Stated Complaint: FEVER, WEAKNESS, COVID CONCERN - Chief complaint Chief Complaint: Resp - History obtained from History obtained from: Patient - Additonal information Additional information: 65-year-old woman with past medical history of high blood pressure, diabetes, high blood lipidemia, presents with Covid exposure and 3 days of nonproductive cough, fatigue and fever. Patient is concerned and would like to have a Covid test. Review of Systems Constitutional: reports: Fever, Chills, Myalgias, Fatigue Cardiac: denies: Chest pain / pressure Respiratory: reports: Cough PD PAST MEDICAL HISTORY - Past Medical History Past Medical History: Yes Cardiovascular: Hypertension, High cholesterol Respiratory: None Endocrine/Autoimmune: Type 2 diabetes GI: GERD, Colon polyps, Diverticulitis : None HEENT: Chronic vision loss Psych: Depression, Anxiety, ADD/ADHD Musculoskeletal: Gout, Other Derm: Eczema - Past Surgical History Past Surgical History: Yes General: Colonoscopy - Present Medications Home Medications: Ambulatory Orders Medication Instructions Recorded Confirmed Escitalopram Oxalate 20 mg PO BID 11/01/15 02/26/17 Simvastatin 20 mg PO DAILY 09/11/17 Clotrimazole [3-Day Vaginal Cream] 21 gm VG BID #1 cream.appl 05/28/19 Fluconazole [Diflucan] 150 mg PO ONCE #1 tablet 05/28/19 Triamterene/Hydrochlorothiazid 1 tab PO DAILY 05/28/19 05/28/19 [Triamterene-Hctz 37.5-25 mg Cp] amLODIPine [Norvasc] 10 mg PO DAILY 05/28/19 05/28/19 metFORMIN [Glucophage] 500 mg PO DAILY 05/28/19 05/28/19 Meclizine [Antivert] 25 mg PO Q6H PRN #20 tablet 03/21/20 Ondansetron Odt [Zofran] 4 mg TL Q6H PRN #10 tablet 03/21/20 Ciprofloxacin HCl [Cipro] 500 mg PO BID #14 tablet 05/23/20 metroNIDAZOLE [Flagyl] 500 mg PO BID #14 tablet 05/23/20 - Allergies Allergies/Adverse Reactions: Allergies Allergy/AdvReac Type Severity Reaction Status Date / Time No Known Drug Allergies Allergy Verified 02/09/21 20:32 - Social History Does the pt smoke?: No Smoking Status: Never smoker Does the pt drink ETOH?: No Does the pt have substance abuse?: No - Immunizations Immunizations are current?: No - POLST Patient has POLST: No PD ED PE NORMAL - Vitals Vital signs reviewed: Yes - General General: Alert and oriented X 3, No acute distress, Well developed/nourished - HEENT HEENT: Atraumatic, PERRL, EOMI - Neck Neck: Supple, no meningeal sign - Cardiac Cardiac: RRR - Respiratory Respiratory: No respiratory distress, Clear bilaterally - Abdomen Abdomen: Non tender, Non distended - Derm Derm: Normal color, Warm and dry - Extremities Extremities: No deformity - Neuro Neuro: Alert and oriented X 3 - Psych Psych: Normal mood, Normal affect Results - Vitals Vitals: Vital Signs - 24 hr 02/09/21 02/09/21 02/10/21 20:32 22:35 00:00 Temperature 38.2 C H 37.2 C Heart Rate 81 74 71 Respiratory 22 28 H 18 Rate Blood Pressure 118/107 H 109/84 H 125/79 O2 Saturation 94 94 97 Oxygen O2 Source Room air - Labs Labs: Laboratory Tests 02/09/21 21:16 Nasal Adenovirus (PCR) NOT DETECTED Nasal B. parapertussis DNA (PCR) NOT DETECTED Nasal Coronavir 229E PCR NOT DETECTED Nasal Coronavir HKU1 PCR NOT DETECTED Nasal Coronavir NL63 PCR NOT DETECTED Nasal Coronavir OC43 PCR NOT DETECTED Nasal Enterovir/Rhinovir PCR NOT DETECTED Nasal Influenza B PCR NOT DETECTED Nasal Influenza A PCR NOT DETECTED Nasal Parainfluen 1 PCR NOT DETECTED Nasal Parainfluen 2 PCR NOT DETECTED Nasal Parainfluen 3 PCR NOT DETECTED Nasal Parainfluen 4 PCR NOT DETECTED Nasal RSV (PCR) NOT DETECTED Nasal B.pertussis DNA PCR NOT DETECTED Nasal C.pneumoniae (PCR) NOT DETECTED Williams Human Metapneumo PCR NOT DETECTED Nasal M.pneumoniae (PCR) NOT DETECTED Nasal SARS-CoV-2 (PCR) DETECTED A PD MEDICAL DECISION MAKING - ED course ED course: 65-year-old woman presents with mild case of COVID-19. Advised her to return for Regeneron treatment if she would like it. Information provided. Return precautions given. Plan to quarantine and follow-up via telehealth. Departure - Departure Disposition: 01 Home, Self Care Clinical Impression: COVID-19 Condition: Good Instructions: COVID-19 [facility], COVID-19 [facility] Department Statement Comments: You were seen in the emergency department for a mild case of COVID-19. Please call our hospital tomorrow between the hours of 7 AM and 3 PM If you are interested in Regeneron monoclonal antibody treatment for COVID-19. You may be able to receive it tomorrow or on Thursday. It is a 1 hour infusion and you will have to be observed for an hour in the emergency department after getting it. Please return to the emergency department immediately if you have any new or worsening symptoms, worsening shortness of breath or other concerns. Follow-up with your primary doctor via telehealth. Quarantine until you are asymptomatic.
--- NOTE | 2021-02-10 07:48 | XRAY Report ---
PROCEDURE: Chest 1 View X-Ray INDICATIONS: cough, COVID exposure TECHNIQUE: One view of the chest was acquired. COMPARISON: 08/17/2019, 05/07/2019, 06/20/2016 FINDINGS: Surgical changes and devices: None. Lungs and pleura: An incomplete inspiratory result is noted, with low lung volumes and crowding of t he vascular markings. No focal infiltrates are seen. No large pneumothorax or large pleural effusion can be seen. Mediastinum: Mediastinal contours appear normal. Heart size is normal. Bones and chest wall: No suspicious bony lesions. Overlying soft tissues appear unremarkable. IMPRESSION: Portable chest within normal limits for age. If there is strong clinical concern for a developing or new pulmonary process, please consider a shor t-term follow-up 2 view chest series, performed in deep inspiration. Note: No significant discrepancy from the preliminary report. Reviewed by: Brandt Rogel MD on 02/10/2021 6:47 AM RASHIDA Approved by: Brandt Rogel MD on 02/10/2021 6:47 AM RASHIDA Station ID: [id number]
== END 2021-02-10 00:59 | disposition home or self-care (01) ==
LOC: EDUNIT# → ED 20:20
DX: U07.1 COVID-19 (principal); E11.9 Type 2 diabetes mellitus without complications; Z79.84 Long term (current) use of oral hypoglycemic drugs
CPT/HCPCS: 0202U; 71045; 99283; 99284; A9270

== ENCOUNTER 2021-02-22 12:25 | Outpatient (CLI) | payer MEDICAID ==
[2021-02-22 12:41] LABS: BILIRUBIN,URINE NEGATIVE (NEGATIVE); GLUCOSE, URINE (UA) NEGATIVE (NEGATIVE); KETONES,URINE (UA) NEGATIVE (NEGATIVE); LEUKOCYTE ESTERASE, URINE NEGATIVE (NEGATIVE); NITRITE,URINE NEGATIVE (NEGATIVE); OCCULT BLOOD,URINE NEGATIVE (NEGATIVE); PH,URINE 6.5 PH (5.0-7.5); PROTEIN,URINE NEGATIVE (NEGATIVE); UROBILINOGEN,URINE 0.2 (NORMAL) E.U./dL (NORMAL)
[2021-02-22 12:42] LABS: CLARITY,URINE CLEAR (CLEAR)
[2021-02-22 12:47] LABS: CALCIUM 9.3 mg/dL (8.5-10.3); CREATININE 0.9 mg/dL (0.4-1.0); POTASSIUM 3.7 mmol/L (3.5-5.0)
[2021-02-22 12:57] LABS: BACTERIA,URINE None Seen /HPF (None Seen); RBC,URINE 0-5 /HPF (0-5); SQUAMOUS EPITHELIAL CELL,UR FEW Squamous (<= Few); WBC,URINE 0-3 /HPF (0-5)
== END 2021-02-22 12:26 | disposition home or self-care (01) ==
LOC: LAB 12:25
PROVIDERS: ATTEND Family Medicine
DX: N17.9 Acute kidney failure, unspecified (principal)
CPT/HCPCS: 36415; 80048; 81001

== ENCOUNTER 2021-07-28 23:20 | Emergency (ER) | payer MEDICAID ==
[2021-07-28] MEDS ORDERED: ACETAMINOPHEN 325 MG TABLET PO STA (23:48)
[2021-07-28] MEDS ORDERED: ONDANSETRON 4 MG/2 ML VIAL IVP STA (23:48)
[2021-07-28] MEDS ORDERED: HYDROmorphone 1 MG/ML CARPUJECT IVP STA (23:48)
--- NOTE | 2021-07-28 23:49 | ED Physician Documentation ---
PD HPI ABD PAIN - Stated complaint Stated Complaint: R GROIN PX - Chief complaint Chief Complaint: Abd Pain - History obtained from History obtained from: Patient - Additional information Additional information: 65-year-old woman with history of recurrent diverticulitis never needing surgery presents with lower abdominal pain starting yesterday, similar to prior episodes of diverticulitis. Does not have a good bowel movement today. She is nauseous. She did not know she was febrile prior to presenting tonight, but is febrile here. She complains of some left flank pain along with this. Review of Systems Ten Systems: 10 systems reviewed and negative Constitutional: reports: Fever, Chills Respiratory: denies: Dyspnea, Cough GI: reports: Abdominal Pain, Nausea, Constipation. denies: Vomiting, Diarrhea, Hematemesis, Bloody / black stool : reports: Frequency PD PAST MEDICAL HISTORY - Past Medical History Past Medical History: Yes Cardiovascular: Hypertension, High cholesterol Respiratory: None Endocrine/Autoimmune: Type 2 diabetes GI: GERD, Colon polyps, Diverticulitis : None HEENT: Chronic vision loss Psych: Depression, Anxiety, ADD/ADHD Musculoskeletal: Gout, Other Derm: Eczema - Past Surgical History Past Surgical History: Yes General: Colonoscopy - Present Medications Home Medications: Ambulatory Orders Medication Instructions Recorded Confirmed Escitalopram Oxalate 20 mg PO BID 11/01/15 07/28/21 Simvastatin 20 mg PO DAILY 09/11/17 07/28/21 Clotrimazole [3-Day Vaginal Cream] 21 gm VG BID #1 cream.appl 05/28/19 07/28/21 Fluconazole [Diflucan] 150 mg PO ONCE #1 tablet 05/28/19 07/28/21 Triamterene/Hydrochlorothiazid 1 tab PO DAILY 05/28/19 07/28/21 [Triamterene-Hctz 37.5-25 mg Cp] amLODIPine [Norvasc] 10 mg PO DAILY 05/28/19 07/28/21 Meclizine [Antivert] 25 mg PO Q6H PRN #20 tablet 03/21/20 07/28/21 Ondansetron Odt [Zofran] 4 mg TL Q6H PRN #10 tablet 03/21/20 07/28/21 Ciprofloxacin HCl [Cipro] 500 mg PO BID #14 tablet 05/23/20 07/28/21 Amox/Clav 875/125 [Augmentin] 1 each PO TID #30 tablet 07/29/21 Fluconazole [Diflucan] 150 mg PO ONCE PRN #1 tablet 07/29/21 HYDROcod/ACETAM 5/325 [[place] 5/325] 1 - 2 tab PO Q6H PRN #15 tablet 07/29/21 - Allergies Allergies/Adverse Reactions: Allergies Allergy/AdvReac Type Severity Reaction Status Date / Time No Known Drug Allergies Allergy Verified 07/28/21 23:41 - Social History Does the pt smoke?: No Smoking Status: Never smoker Does the pt drink ETOH?: No Does the pt have substance abuse?: No - Immunizations Immunizations are current?: No - POLST Patient has POLST: No PD ED PE NORMAL - Vitals Vital signs reviewed: Yes (Febrile and appropriately tachycardic given the fever.) - General General: Alert and oriented X 3, No acute distress - Neck Neck: Supple, no meningeal sign, No bony TTP - Cardiac Cardiac: RRR, No murmur - Respiratory Respiratory: No respiratory distress, Clear bilaterally - Abdomen Abdomen: Normal bowel sounds, Soft, Other (Very mild lower abdominal tenderness without surgical signs) - Back Back: No CVA TTP, No spinal TTP - Derm Derm: Normal color, Warm and dry - Extremities Extremities: No edema, No calf tenderness / cord - Neuro Neuro: Alert and oriented X 3, Normal speech Results - Vitals Vitals: Vital Signs - 24 hr 07/28/21 07/29/21 07/29/21 23:30 01:39 03:00 Temperature 38.9 C H 37.4 C Heart Rate 105 H 74 76 Respiratory 18 19 18 Rate Blood Pressure 179/95 H 144/72 H 139/85 H O2 Saturation 99 95 98 Oxygen O2 Source Room air - Labs Labs: Laboratory Tests 07/28/21 07/28/21 07/28/21 00:38 00:38 23:56 WBC 11.5 H RBC 4.97 Hgb 15.2 Hct 45.4 MCV 91.3 MCH 30.6 MCHC 33.5 RDW 13.0 Plt Count 203 MPV 9.7 Neut # (Auto) 8.6 H Lymph # (Auto) 2.0 [place] # (Auto) 0.8 Eos # (Auto) 0.1 Baso # (Auto) 0.0 Absolute Nucleated RBC 0.00 Nucleated RBC % 0.0 Sodium 139 Potassium 4.1 Chloride 102 Carbon Dioxide 26 Anion Gap 11.0 BUN 19 Creatinine 0.9 Estimated GFR (MDRD) 63 L Glucose 121 H Calcium 9.2 Total Bilirubin 0.8 AST 19 ALT 30 Alkaline Phosphatase 48 Total Protein 7.4 Albumin 4.0 Globulin 3.4 Albumin/Globulin Ratio 1.2 Lipase 33 Urine Color YELLOW Urine Clarity CLEAR Urine pH 6.0 Ur Specific Hasty 1.025 Urine Protein 30 H Urine Glucose (UA) NEGATIVE Urine Ketones NEGATIVE Urine Occult Blood SMALL H Urine Nitrite NEGATIVE Urine Bilirubin NEGATIVE Urine Urobilinogen 0.2 (NORMAL) Ur Leukocyte Esterase NEGATIVE Urine RBC 0-5 Urine WBC 0-3 Ur Squamous Epith Cells MOD Squamous H Urine Bacteria Few Ur Microscopic Review INDICATED Urine Culture Comments NOT INDICATED - Rads (name of study) The abdomen pelvis demonstrates diverticulitis and incidental gallstones with small pelvic free fluid Radiology: EMP read contemporaneously PD MEDICAL DECISION MAKING - ED course ED course: 65-year-old woman with recurrent diverticulitis. Given the fever with air and treating with antibiotics, thankfully no complicating factors on CT that would necessitate admission. Departure - Departure Disposition: 01 Home, Self Care Clinical Impression: Diverticulitis of gastrointestinal tract Condition: Good Instructions: ED Diverticulitis Prescriptions: Amox/Clav 875/125 [Augmentin] 1 each PO TID #30 tablet Fluconazole [Diflucan] 150 mg PO ONCE PRN #1 tablet PRN Reason: yeast infection HYDROcod/ACETAM 5/325 [[place] 5/325] 1 - 2 tab PO Q6H PRN #15 tablet PRN Reason: Pain Comments: As expected, you do have diverticulitis today. You got a dose of IV antibiotics while in the department, the remainder of your medications will be waiting for you at the [facility] pharmacy at the corner [address] in [place]. You did have incidental small gallstones, unlikely to ever bother you but if they do it would be in the right upper part of your abdomen. Call your doctor to arrange a follow-up appointment, make the next available appointment. In the interim, return anytime if worse or if new symptoms develop. I am prescribing a short course of narcotic pain medication for you. These are p otentially dangerous and addictive medications that should be used carefully. These medications may constipate you. Take an [id number] stool softener (docusate) twice daily with plenty of water while taking these medications. If you go 24 hours without a bowel movement, take [id number] miralax, per package instructions. Do not drink or drive while taking these medications. If you received narcotic or sedating medications while in the emergency department, do not drive for 24 hours. Store this medication in a safe, secure place and out of reach of children. It is a violation of federal law to give or sell this medication to another person or to use in a manner other than prescribed. The ED will not refill narcotic prescriptions, including prescriptions lost or stolen. To dispose of unwanted medications: 1. [facility] at [address] in [place] has a medication drop box. They accept prescription medications (in pill form) Thursday through Thursday 9:00 a.m. to 5:00 p.m. 2. The [facility] accepts prescription medications (in pill form only) for disposal year round. Call for more information. 3. Contact the [facility] for the next [facility] sponsored prescription drug collection event. , [phone], or [phone]; Note that many narcotic pain relievers also contain Tylenol/acetaminophen. Please ensure that your total dose of acetaminophen from all sources does not exceed 3 g (3000 mg) per day.
[2021-07-29] LABS: BILIRUBIN,URINE NEGATIVE (NEGATIVE); CLARITY,URINE CLEAR (CLEAR); GLUCOSE, URINE (UA) NEGATIVE (NEGATIVE); KETONES,URINE (UA) NEGATIVE (NEGATIVE); LEUKOCYTE ESTERASE, URINE NEGATIVE (NEGATIVE); NITRITE,URINE NEGATIVE (NEGATIVE); OCCULT BLOOD,URINE SMALL (NEGATIVE); PROTEIN,URINE 30 mg/dL (NEGATIVE); UROBILINOGEN,URINE 0.2 (NORMAL) E.U./dL (NORMAL)
[2021-07-29 00:10] LABS: BACTERIA,URINE Few /HPF (None Seen); RBC,URINE 0-5 /HPF (0-5); SQUAMOUS EPITHELIAL CELL,UR MOD Squamous (<= Few); WBC,URINE 0-3 /HPF (0-5)
[2021-07-29] MEDS ORDERED: iohexoL-300 100 ML VIAL ONE (00:42)
[2021-07-29 00:44] LABS: BASOPHILS % (AUTO) 0.3 %; EOSINOPHILS # (AUTO) 0.1 10^3/uL (0.0-0.7); EOSINOPHILS % (AUTO) 0.6 %; HCT - HEMATOCRIT 45.4 % (37.0-47.0); HGB - HEMOGLOBIN 15.2 g/dL (12.0-16.0); LYMPHOCYTES % (AUTO) 17.1 %; MEAN CORPUSCULAR HEMOGLOBIN 30.6 pg (27.0-31.0); MEAN CORPUSCULAR HGB CONC 33.5 g/dL (32.0-36.0); MEAN CORPUSCULAR VOLUME 91.3 fL (81.0-99.0); MEAN PLATELET VOLUME 9.7 fL (7.9-10.8); MONOCYTES # (AUTO) 0.8 10^3/uL (0.0-1.0); MONOCYTES % (AUTO) 6.7 %; NEUTROPHILS # (AUTO) 8.6 10^3/uL (1.5-6.6); PLT - PLATELET COUNT 203 10^3/uL (130-450); RED BLOOD COUNT 4.97 10^6/uL (4.20-5.40); WHITE BLOOD COUNT 11.5 x10^3/uL (4.8-10.8)
[2021-07-29 00:57] LABS: ALBUMIN/GLOBULIN RATIO 1.2 (1.0-2.2); BILIRUBIN,TOTAL 0.8 mg/dL (0.2-1.0); CALCIUM 9.2 mg/dL (8.5-10.3); CREATININE 0.9 mg/dL (0.4-1.0); POTASSIUM 4.1 mmol/L (3.5-5.0); TOTAL PROTEIN 7.4 g/dL (6.7-8.2)
[2021-07-29] MEDS ORDERED: PIPERACILLIN/TAZOBACTAM 3.375 GM in SODIUM CHLORIDE 0.9% MINIBAG 100 ML IV STA (02:26)
[2021-07-29] MEDS ORDERED: iohexoL-300 100 ML VIAL IVP ONE (02:29)
[2021-07-29] MEDS ORDERED: HYDROcod/ACET 5/325 Prepack 4 PO STA (04:10)
[2021-07-29 04:20] VITALS: BP 140/84
--- NOTE | 2021-07-29 08:27 | CT Report ---
PROCEDURE: Abdomen/Pelvis W INDICATIONS: IV only, low abd and left flank pain CONTRAST: IV CONTRAST: Isovue 300 ml: 100 PO CONTRAST: *NO PO CONTRAST TECHNIQUE: After the administration of intravenous contrast, 5 mm thick sections acquired from the diaphragms to the symphysis. 5 mm thick coronal and sagittal reformats were acquired. For radiation dose reducti on, the following was used: automated exposure control, adjustment of mA and/or kV according to le ent size. COMPARISON: CT abdomen and pelvis with contrast, 05/22/2020. FINDINGS: Image quality: Excellent. ABDOMEN: Lung bases: Dependent atelectasis at lung bases. Heart size is normal. Tiny hiatal hernia. Solid organs: Liver and spleen are normal in size and enhancement. Gallbladder contains small galls tones. Biliary system is non dilated. Pancreas enhances normally. No adrenal nodules. Kidneys dem onstrate normal size and enhancement, without hydronephrosis. Peritoneum and bowel: There are colonic diverticula. There is focal thickening and inflammatory stra nding in sigmoid colon, consistent with acute diverticulitis. Bowel loops demonstrate normal caliber. No free air. There is a trace amount of free fluid. Nodes and vessels: No retroperitoneal or mesenteric adenopathy by size criteria. Aorta and inferior vena cava are normal in size. Miscellaneous: No ventral hernias. PELVIS: Genitourinary: Uterus is normal. Ovaries are not well seen. Bladder wall thickness is normal. Miscellaneous: No inguinal hernias or adenopathy. Bones: No suspicious bony lesions. No vertebral body compression fractures. IMPRESSION: 1. Acute colitis of sigmoid colon. No diverticula abscess. Recommend follow-up colonoscopy after adeq uate treatment of acute illness as colon cancer could have a similar CT appearance. 2. A trace amount of free fluid. No free air. 3. Cholelithiasis. No significant discrepancy with the preliminary interpretation. Reviewed by: Khurram Sweet MD on 07/29/2021 8:26 AM PST Approved by: Khurram Sweet MD on 07/29/2021 8:26 AM PST Station ID: [id number]
== END 2021-07-29 04:22 | disposition home or self-care (01) ==
LOC: ED 23:20
DX: K57.32 Diverticulitis of large intestine without perforation or abscess without bleeding (principal); I10 Essential (primary) hypertension; E11.9 Type 2 diabetes mellitus without complications
CPT/HCPCS: 36415; 74177; 80053; 81001; 83690; 85025; 96365; 96375; 99284; A9270; J1170; Q9967; 81003; 87086

== ENCOUNTER 2021-09-30 11:11 | Outpatient (CLI) | payer MEDICAID ==
[2021-09-30 11:35] LABS: BASOPHILS % (AUTO) 0.4 %; EOSINOPHILS # (AUTO) 0.2 10^3/uL (0.0-0.7); EOSINOPHILS % (AUTO) 2.8 %; HCT - HEMATOCRIT 44.6 % (37.0-47.0); HGB - HEMOGLOBIN 15.3 g/dL (12.0-16.0); LYMPHOCYTES # (AUTO) 2.2 10^3/uL (1.5-3.5); LYMPHOCYTES % (AUTO) 30.8 %; MEAN CORPUSCULAR HEMOGLOBIN 31.4 pg (27.0-31.0); MEAN CORPUSCULAR HGB CONC 34.3 g/dL (32.0-36.0); MEAN CORPUSCULAR VOLUME 91.6 fL (81.0-99.0); MEAN PLATELET VOLUME 9.7 fL (7.9-10.8); MONOCYTES # (AUTO) 0.3 10^3/uL (0.0-1.0); MONOCYTES % (AUTO) 4.8 %; NEUTROPHILS # (AUTO) 4.3 10^3/uL (1.5-6.6); NEUTROPHILS % (AUTO) 61.1 %; PLT - PLATELET COUNT 205 10^3/uL (130-450); RED BLOOD COUNT 4.87 10^6/uL (4.20-5.40); RED CELL DISTRIBUTION WIDTH 12.9 % (12.0-15.0); WHITE BLOOD COUNT 7.1 x10^3/uL (4.8-10.8)
[2021-09-30 11:50] LABS: ALBUMIN 4.3 g/dL (3.2-5.5); ALKALINE PHOSPHATASE 46 IU/L (42-121); ALT ALANINE AMINOTRANSFERASE 21 IU/L (10-60); AST ASPARTATE AMINOTRANSFERASE 17 IU/L (10-42); BILIRUBIN,TOTAL 0.5 mg/dL (0.2-1.0); BUN - BLOOD UREA NITROGEN 17 mg/dL (6-20); CALCIUM 9.5 mg/dL (8.5-10.3); CARBON DIOXIDE - CO2 26 mmol/L (21-32); CHLORIDE 98 mmol/L (101-111); CREATININE 0.9 mg/dL (0.4-1.0); GFR - MDRD 63 (>89); GLUCOSE 124 mg/dL (70-100); POTASSIUM 3.8 mmol/L (3.5-5.0); SODIUM 136 mmol/L (135-145)
[2021-09-30 11:51] LABS: ALBUMIN/GLOBULIN RATIO 1.2 (1.0-2.2); CHOL/HDL RATIO 3.2 (<4.4); CHOLESTEROL 225 mg/dL; HDL CHOLESTEROL 71 mg/dL; LDL CHOLESTEROL,CALCULATED 112 mg/dL; LDL/HDL RATIO 1.6 (<4.4); TRIGLYCERIDES 210 mg/dL; VLDL CHOLESTEROL 42 mg/dL
[2021-09-30 12:01] LABS: THYROID STIMULATING HORMONE 2.82 uIU/mL (0.34-5.60)
[2021-09-30 12:11] LABS: ESTIMATED AVERAGE GLUCOSE 134 mg/dL (70-100); HEMOGLOBIN A1c% 6.3 % (4.27-6.07)
== END 2021-09-30 11:12 | disposition home or self-care (01) ==
LOC: LAB 11:11
PROVIDERS: ATTEND Family Medicine
DX: E11.9 Type 2 diabetes mellitus without complications (principal)
CPT/HCPCS: 36415; 80053; 80061; 83036; 83721; 84443; 85025

== ENCOUNTER 2021-10-01 12:58 | Outpatient (CLI) | payer MEDICAID ==
--- NOTE | 2021-10-02 09:03 | Mammography Report ---
BILATERAL DIGITAL SCREENING MAMMOGRAM 3D/2D: 10/01/2021 CLINICAL: Routine screening. Comparison is made to exams dated: 08/09/2020 mammogram, 11/09/2018 mammogram, 09/02/2016 mammogram, 03/29 mammogram - [facility], and 03/27/2009 mammogram - [facility]. T here are scattered fibroglandular elements in both breasts. No significant masses, calcifications, or other findings are seen in either breast. There has been no significant interval change. IMPRESSION: NEGATIVE There is no mammographic evidence of malignancy. A 1 year screening mammogram is recommended. This exam was interpreted at Station ID: [id number]. NOTE: For mammograms, a report in lay terms will be sent to the patient. Approximately 15% of breast malignancies will not be visualized mammographically. In the management of a palpable breast mass, a negative mammogram must not discourage biopsy of a clinically suspicious lesion. Electronically Signed By: Nicky [email or web address]:10/01/2021 18:35:08 ACR BI-RADS Category 1: Negative 3341F PARENCHYMAL PATTERN: (A) - The breast(s) demonstrate(s) scattered fibroglandular densities. BI-RADS CATEGORY: (1) - 1 RECOMMENDATION: (ANNUAL) - Recommend routine annual screening mammography. 20221002 1 year screening LATERALITY: (B)
== END 2021-10-01 12:59 | disposition home or self-care (01) ==
LOC: DI.N 12:58
DX: Z12.31 Encounter for screening mammogram for malignant neoplasm of breast (principal)

== ENCOUNTER 2021-10-25 06:22 | Emergency (ER) | payer MEDICAID ==
--- NOTE | 2021-10-25 07:02 | ED Physician Documentation ---
PD HPI ABD PAIN - Stated complaint Stated Complaint: LOWER ABD CRAMPS - Chief complaint Chief Complaint: Abd Pain - History obtained from History obtained from: Patient - History of Present Illness Timing - onset: How many days ago (several) Timing - duration: Days (several) Timing - details: Gradual onset, Waxing and waning Quality: Cramping, Aching, Pain Location: Suprapubic, LLQ Radiation: No: Lower back, Left flank Improved by: Laying still Worsened by: Moving, Palpation Associated symptoms: Nausea, Vomiting (once today). No: Fever, Diarrhea, Constipation, Melena Similar symptoms before: Diagnosis (she has had similar symptoms 6 times in the past related to diverticulitis. No prior surgery.) Recently seen: Not recently seen Review of Systems Constitutional: denies: Fever, Chills Nose: denies: Rhinorrhea / runny nose, Congestion Throat: denies: Sore throat Respiratory: denies: Cough GI: reports: Abdominal Pain, Nausea, Vomiting (once today). denies: Constipation, Diarrhea Musculoskeletal: denies: Neck pain, Back pain, Extremity swelling Neurologic: reports: Generalized weakness. denies: Focal weakness, Numbness, Near syncope PD PAST MEDICAL HISTORY - Past Medical History Past Medical History: Yes Cardiovascular: Hypertension, High cholesterol Respiratory: None Endocrine/Autoimmune: Type 2 diabetes GI: GERD, Colon polyps, Diverticulitis : None HEENT: Chronic vision loss Psych: Depression, Anxiety, ADD/ADHD Musculoskeletal: Gout, Other Derm: Eczema - Past Surgical History Past Surgical History: Yes General: Colonoscopy - Present Medications Home Medications: Ambulatory Orders Medication Instructions Recorded Confirmed Escitalopram Oxalate 20 mg PO BID 11/01/15 07/28/21 Simvastatin 20 mg PO DAILY 09/11/17 07/28/21 Clotrimazole [3-Day Vaginal Cream] 21 gm VG BID #1 cream.appl 05/28/19 07/28/21 Fluconazole [Diflucan] 150 mg PO ONCE #1 tablet 05/28/19 07/28/21 Triamterene/Hydrochlorothiazid 1 tab PO DAILY 05/28/19 07/28/21 [Triamterene-Hctz 37.5-25 mg Cp] amLODIPine [Norvasc] 10 mg PO DAILY 05/28/19 07/28/21 Meclizine [Antivert] 25 mg PO Q6H PRN #20 tablet 03/21/20 07/28/21 Ondansetron Odt [Zofran] 4 mg TL Q6H PRN #10 tablet 03/21/20 07/28/21 Ciprofloxacin HCl [Cipro] 500 mg PO BID #14 tablet 05/23/20 07/28/21 Amox/Clav 875/125 [Augmentin] 1 each PO TID #30 tablet 07/29/21 Fluconazole [Diflucan] 150 mg PO ONCE PRN #1 tablet 07/29/21 HYDROcod/ACETAM 5/325 [Morley 5/325] 1 - 2 tab PO Q6H PRN #15 tablet 07/29/21 Fluconazole [Diflucan] 150 mg PO Q3D 6 Days #2 tablet 10/25/21 HYDROcod/ACETAM 5/325 [Morley 5/325] 1 ea PO Q6H PRN #14 tablet 10/25/21 Naproxen 250 mg PO TID 7 Days #20 tablet 10/25/21 Ondansetron Odt [Zofran] 4 mg TL Q6H PRN #10 tablet 10/25/21 cephALEXin [Keflex] 500 mg PO TID 5 Days #15 cap 10/25/21 metroNIDAZOLE [Flagyl] 250 mg PO TID 5 Days #15 tablet 10/25/21 - Allergies Allergies/Adverse Reactions: Allergies Allergy/AdvReac Type Severity Reaction Status Date / Time No Known Drug Allergies Allergy Verified 10/25/21 06:34 - Living Situation Living Arrangement: reports: At home - Social History Does the pt smoke?: No Smoking Status: Never smoker Does the pt drink ETOH?: No Does the pt have substance abuse?: No - Family History Family history: reports: Non contributory - Immunizations Immunizations are current?: No - POLST Patient has POLST: No PD ED PE NORMAL - Vitals Vital signs reviewed: Yes - General General: Alert and oriented X 3, Well developed/nourished, Other (appears uncomfortable in waves, lower abdomen. ) - HEENT HEENT: Moist mucous membranes - Neck Neck: Supple, no meningeal sign, No adenopathy - Cardiac Cardiac: RRR, No murmur - Respiratory Respiratory: Clear bilaterally - Abdomen Abdomen: Normal bowel sounds, Soft, Non distended, No organomegaly, Other (tender lower abd midline to LLQ with some local guarding, but no percussion/rebound/referred tenderness. ) - Female Female : Deferred - Rectal Rectal: Deferred - Back Back: No CVA TTP - Derm Derm: Normal color - Extremities Extremities: Normal ROM s pain, No edema, No calf tenderness / cord - Neuro Neuro: Alert and oriented X 3, No motor deficit, Normal speech - Psych Psych: Normal mood Results - Vitals Vitals: Vital Signs - 24 hr 10/25/21 09:45 Heart Rate 101 H Respiratory 20 Rate Blood Pressure 120/104 H O2 Saturation 92 Oxygen O2 Source Room air - Labs Labs: Laboratory Tests 10/25/21 10/25/21 10/25/21 07:00 07:00 08:20 WBC 9.7 RBC 4.63 Hgb 14.5 Hct 42.4 MCV 91.6 MCH 31.3 H MCHC 34.2 RDW 12.9 Plt Count 211 MPV 9.5 Neut # (Auto) 6.4 Lymph # (Auto) 2.4 [place] # (Auto) 0.7 Eos # (Auto) 0.1 Baso # (Auto) 0.0 Absolute Nucleated RBC 0.00 Nucleated RBC % 0.0 Sodium 136 Potassium 4.3 Chloride 99 L Carbon Dioxide 25 Anion Gap 12.0 BUN 18 Creatinine 0.9 Estimated GFR (MDRD) 63 L Glucose 169 H Calcium 9.5 Total Bilirubin 0.9 AST 18 ALT 20 Alkaline Phosphatase 47 Total Protein 7.9 Albumin 4.0 Globulin 3.9 Albumin/Globulin Ratio 1.0 Lipase 34 Urine Color YELLOW Urine Clarity CLEAR Urine pH 5.5 Ur Specific [place] >=1.030 H Urine Protein 30 H Urine Glucose (UA) NEGATIVE Urine Ketones NEGATIVE Urine Occult Blood TRACE-INTA Urine Nitrite NEGATIVE Urine Bilirubin NEGATIVE Urine Urobilinogen 0.2 (NORMAL) Ur Leukocyte Esterase TRACE H Urine RBC 0-5 Urine WBC 11-25 H Ur Epithelial Cells MOD Transitional H Ur Squamous Epith Cells MANY Squamous H Urine Bacteria Many H Urine Mucus Few Strands Ur Microscopic Review INDICATED Urine Culture Comments NOT INDICATED PD MEDICAL DECISION MAKING - ED course Complexity details: considered differential (lower abd cramping pain left and midline, she feels is similar to prior diverticulitis she has had 6 times. Shared decision to treat as diverticulitis. Abd exam does not seem acute peritoneal. ), d/w patient Departure - Departure Disposition: 01 Home, Self Care Clinical Impression: Lower abdominal pain, Diverticulitis Condition: Stable Record reviewed to determine appropriate education?: Yes Instructions: ED Diverticulitis Follow-Up: Kelin Bass DO [Primary Care Provider] - Prescriptions: Fluconazole [Diflucan] 150 mg PO Q3D 6 Days #2 tablet metroNIDAZOLE [Flagyl] 250 mg PO TID 5 Days #15 tablet cephALEXin [Keflex] 500 mg PO TID 5 Days #15 cap Naproxen 250 mg PO TID 7 Days #20 tablet HYDROcod/ACETAM 5/325 [Morley 5/325] 1 ea PO Q6H PRN #14 tablet PRN Reason: Pain Ondansetron Odt [Zofran] 4 mg TL Q6H PRN #10 tablet PRN Reason: Nausea / Vomiting Comments: Stay well-hydrated. Regular diet is okay. We will treat this like diverticulitis. Your blood count is good and you do not have a fever and your urine is clear so no signs of urinary infection. Use naproxen anti-inflammatory as well as antibiotics of metronidazole and cephalexin all 3 times daily for the next 5 days. Ondansetron if needed for nausea. Add Tylenol if needed for pain or hydrocodone for worse pain. To reduce yeast infections from the antibiotics, I also prescribed Diflucan every third day for 2 doses. Recheck if not improving well over the next 2 to 3 days and return if worse. I transmitted your prescriptions to the [facility] pharmacy here in [place]. I am prescribing a short course of narcotic pain medication for you. These are potentially dangerous and addictive medications that should be used carefully. These medications may constipate you. Take an [id number] stool softener such as docusate twice daily with plenty of water while taking these medications. If you go 24 hours without a bowel movement, take [id number] MiraLAX, per package instructions. Do not drink or drive while taking these medications. If you received narcotic or sedating medications while in the emergency department do not drive for 24 hours. Store this medication in a safe, secure place and out of reach of children. It is a violation of federal law to give or sell this medication to another person or to use in a manner other than prescribed. The ED will not refill narcotic prescriptions, including prescriptions lost or stolen. You can dispose of unwanted medications at the [facility]'s office or at several pharmacies such as [facility]. Discharge Date/Time: 10/25/21 09:51
[2021-10-25 07:07] LABS: BASOPHILS % (AUTO) 0.4 %; EOSINOPHILS # (AUTO) 0.1 10^3/uL (0.0-0.7); EOSINOPHILS % (AUTO) 1.4 %; HCT - HEMATOCRIT 42.4 % (37.0-47.0); HGB - HEMOGLOBIN 14.5 g/dL (12.0-16.0); LYMPHOCYTES # (AUTO) 2.4 10^3/uL (1.5-3.5); LYMPHOCYTES % (AUTO) 24.6 %; MEAN CORPUSCULAR HEMOGLOBIN 31.3 pg (27.0-31.0); MEAN CORPUSCULAR HGB CONC 34.2 g/dL (32.0-36.0); MEAN CORPUSCULAR VOLUME 91.6 fL (81.0-99.0); MEAN PLATELET VOLUME 9.5 fL (7.9-10.8); MONOCYTES # (AUTO) 0.7 10^3/uL (0.0-1.0); MONOCYTES % (AUTO) 6.9 %; NEUTROPHILS # (AUTO) 6.4 10^3/uL (1.5-6.6); NEUTROPHILS % (AUTO) 66.4 %; PLT - PLATELET COUNT 211 10^3/uL (130-450); RED BLOOD COUNT 4.63 10^6/uL (4.20-5.40); RED CELL DISTRIBUTION WIDTH 12.9 % (12.0-15.0); WHITE BLOOD COUNT 9.7 x10^3/uL (4.8-10.8)
[2021-10-25 07:21] LABS: BILIRUBIN,TOTAL 0.9 mg/dL (0.2-1.0); CALCIUM 9.5 mg/dL (8.5-10.3); CREATININE 0.9 mg/dL (0.4-1.0); POTASSIUM 4.3 mmol/L (3.5-5.0); TOTAL PROTEIN 7.9 g/dL (6.7-8.2)
[2021-10-25] MEDS: SODIUM CHLORIDE 0.9% 1,000 ML IV STA (07:44)
[2021-10-25] MEDS: ONDANSETRON 4 MG/2 ML VIAL IVP STA (07:46)
[2021-10-25] MEDS: HYDROmorphone 1 MG/ML CARPUJECT IVP STA (07:49)
[2021-10-25] MEDS: cefTRIAXone 1 GM VIAL IVP STA (07:50)
[2021-10-25] MEDS: KETOROLAC 30 MG/ML VIAL IVP STA (07:53)
[2021-10-25] MEDS: metroNIDAZOLE 250 MG TABLET PO STA (07:55)
[2021-10-25 08:33] LABS: BILIRUBIN,URINE NEGATIVE (NEGATIVE); GLUCOSE, URINE (UA) NEGATIVE (NEGATIVE); KETONES,URINE (UA) NEGATIVE (NEGATIVE); LEUKOCYTE ESTERASE, URINE TRACE (NEGATIVE); NITRITE,URINE NEGATIVE (NEGATIVE); OCCULT BLOOD,URINE TRACE-INTA (NEGATIVE); PH,URINE 5.5 PH (5.0-7.5); PROTEIN,URINE 30 mg/dL (NEGATIVE); UROBILINOGEN,URINE 0.2 (NORMAL) E.U./dL (NORMAL)
[2021-10-25 08:35] LABS: CLARITY,URINE CLEAR (CLEAR)
[2021-10-25 08:43] LABS: BACTERIA,URINE Many /HPF (None Seen); RBC,URINE 0-5 /HPF (0-5); SQUAMOUS EPITHELIAL CELL,UR MANY Squamous (<= Few)
[2021-10-25 08:44] LABS: EPITHELIAL CELLS,UR MOD Transitional /HPF (<= Few); MUCUS,URINE Few Strands
[2021-10-25 09:46] VITALS: BP 120/104
== END 2021-10-25 09:51 | disposition home or self-care (01) ==
LOC: ED 06:22
DX: K57.92 Diverticulitis of intestine, part unspecified, without perforation or abscess without bleeding (principal); I10 Essential (primary) hypertension; E11.9 Type 2 diabetes mellitus without complications
CPT/HCPCS: 36415; 80053; 81001; 83690; 85025; 96374; 96375; 99284; 99285; A9270; J1170; 81003; 87086

== ENCOUNTER 2021-11-29 08:20 | Outpatient (CLI) | payer MEDICAID ==
[2021-11-29 08:50] LABS: BASOPHILS % (AUTO) 0.8 %; EOSINOPHILS # (AUTO) 0.2 10^3/uL (0.0-0.7); EOSINOPHILS % (AUTO) 3.2 %; HCT - HEMATOCRIT 44.1 % (37.0-47.0); HGB - HEMOGLOBIN 14.7 g/dL (12.0-16.0); LYMPHOCYTES # (AUTO) 1.8 10^3/uL (1.5-3.5); LYMPHOCYTES % (AUTO) 35.8 %; MEAN CORPUSCULAR HEMOGLOBIN 30.9 pg (27.0-31.0); MEAN CORPUSCULAR HGB CONC 33.3 g/dL (32.0-36.0); MEAN CORPUSCULAR VOLUME 92.6 fL (81.0-99.0); MEAN PLATELET VOLUME 9.3 fL (7.9-10.8); MONOCYTES # (AUTO) 0.3 10^3/uL (0.0-1.0); MONOCYTES % (AUTO) 5.9 %; NEUTROPHILS # (AUTO) 2.7 10^3/uL (1.5-6.6); NEUTROPHILS % (AUTO) 54.1 %; PLT - PLATELET COUNT 206 10^3/uL (130-450); RED BLOOD COUNT 4.76 10^6/uL (4.20-5.40); RED CELL DISTRIBUTION WIDTH 13.5 % (12.0-15.0); WHITE BLOOD COUNT 5.1 x10^3/uL (4.8-10.8)
[2021-11-29 09:07] LABS: ALBUMIN 4.5 g/dL (3.2-5.5); ALBUMIN/GLOBULIN RATIO 1.4 (1.0-2.2); ALKALINE PHOSPHATASE 49 IU/L (42-121); ALT ALANINE AMINOTRANSFERASE 25 IU/L (10-60); AST ASPARTATE AMINOTRANSFERASE 19 IU/L (10-42); BILIRUBIN,TOTAL 0.3 mg/dL (0.2-1.0); BUN - BLOOD UREA NITROGEN 21 mg/dL (6-20); CALCIUM 9.7 mg/dL (8.5-10.3); CARBON DIOXIDE - CO2 26 mmol/L (21-32); CHLORIDE 101 mmol/L (101-111); CHOL/HDL RATIO 2.2 (<4.4); CHOLESTEROL 141 mg/dL; GFR - MDRD 56 (>89); GLUCOSE 128 mg/dL (70-100); HDL CHOLESTEROL 64 mg/dL; LDL CHOLESTEROL,CALCULATED 50 mg/dL; LDL/HDL RATIO 0.8 (<4.4); SODIUM 140 mmol/L (135-145); TOTAL PROTEIN 7.8 g/dL (6.7-8.2); TRIGLYCERIDES 134 mg/dL; VLDL CHOLESTEROL 27 mg/dL
[2021-11-29 09:18] LABS: THYROID STIMULATING HORMONE 2.66 uIU/mL (0.34-5.60)
[2021-11-29 11:57] LABS: ESTIMATED AVERAGE GLUCOSE 131 mg/dL (70-100); HEMOGLOBIN A1c% 6.2 % (4.27-6.07)
== END 2021-11-29 08:21 | disposition home or self-care (01) ==
LOC: LAB 08:20
PROVIDERS: ATTEND Nurse Practitioner Family
DX: E78.5 Hyperlipidemia, unspecified (principal); I10 Essential (primary) hypertension; E11.9 Type 2 diabetes mellitus without complications
CPT/HCPCS: 36415; 80053; 80061; 83036; 83721; 84443; 85025

== ENCOUNTER 2021-12-19 07:46 | Day surgery (SDC) | payer MEDICARE ==
--- NOTE | 2021-12-19 07:20 | ANESTHESIA ---
Pre-Anesthesia VS, & Labs - Diagnosis hx colon polyps - Procedure colonscopy Height: 5 ft 1 in - NPO >8 hours Last Fluid Intake: am prep - Is Patient ?: No - Lab Results Lab results reviewed: Yes Home Medications and Allergies Escitalopram Oxalate 20 mg PO DAILY 11/01/15 Simvastatin 20 mg PO DAILY 09/11/17 amLODIPine [Norvasc] 10 mg PO DAILY 05/28/19 Multivitamin 1 each PO DAILY 12/05/21 Trazodone HCl 50 - 100 mg PO QPM PRN 12/05/21 Allergies/Adverse Reactions: Allergies Allergy/AdvReac Type Severity Reaction Status Date / Time metformin AdvReac Nausea Verified 12/19/21 08:08 Anes History & Medical History - Anesthetic History Anesthesia Complications: reports: No previous complications Family history of Anesthesia Complications: Denies Family history of Malignant Hyperthermia: Denies - Medical History Cardiovascular: reports: Hypertension, High cholesterol Pulmonary: reports: None Gastrointestinal: reports: GERD, Colon polyps, Diverticulitis Urinary: reports: None Musculoskeletal: reports: Gout Endocrine/Autoimmune: reports: Type 2 diabetes Skin: reports: Eczema Smoking Status: Never smoker Psychosocial: reports: No issues indicated History of Cancer?: No - Surgical History General: reports: Colonoscopy Exam General: Alert, Oriented x3, Cooperative Plan Anesthesia Type: Total IV Consent for Procedure(s) Verified and Reviewed: Yes Code Status: Attempt Resuscitation ASA classification: 2-Mild systemic disease Is this case an emergency?: No
[2021-12-19] MEDS ORDERED: LACTATED RINGERS 1,000 ML IV ONE ×2 (07:54→10:27)
[2021-12-19] MEDS ORDERED: PROPOFOL 500 MG/50 ML 500 MG/50 ML VIAL ONE (09:05)
[2021-12-19] MEDS ORDERED: MIDAZOLAM 2 MG/2 ML VIAL ONE (09:34)
--- NOTE | 2021-12-19 09:49 | HISTORY & PHYSICAL EXAMINATION ---
Chief Complaint - Chief Complaint Chief Complaint: history of colon polyps by report History of Present Illness - History Obtained From Records Reviewed: yes History obtained from: pt Exam Limitations: none - History of Present Illness HPI Comment/Other: history of colon polyps by report. by chart review no colon polyps in 2016 or 2006 here for colon cancer screening. history recurrent diverticulitis. last ct 6 months ago. History - Past Medical History Cardiovascular: reports: Hypertension, High cholesterol Respiratory: reports: None Endocrine/Autoimmune: reports: Type 2 diabetes GI: reports: GERD, Colon polyps, Diverticulitis : reports: None HEENT: reports: Chronic vision loss Psych: reports: Depression, Anxiety, ADD/ADHD Musculoskeletal: reports: Gout Derm: reports: Eczema MRSA Hx?: No - Past Surgical History General: reports: Colonoscopy - POLST Patient has POLST: No Meds/Allgy - Home Medications Home Medications: Ambulatory Orders Medication Instructions Recorded Confirmed Escitalopram Oxalate 20 mg PO DAILY 11/01/15 12/19/21 Simvastatin 20 mg PO DAILY 09/11/17 12/19/21 amLODIPine [Norvasc] 10 mg PO DAILY 05/28/19 12/19/21 Multivitamin 1 each PO DAILY 12/05/21 12/19/21 Trazodone HCl 50 - 100 mg PO QPM PRN 12/05/21 12/19/21 - Allergies Allergies/Adverse Reactions: Allergies Allergy/AdvReac Type Severity Reaction Status Date / Time metformin AdvReac Nausea Verified 12/19/21 08:08 Review of Systems - Other Findings Other Findings: 10 pt ros as above otherwise unremarkable Exam - Vital Signs Vital Signs: Vital Signs x48h Temp Pulse Resp BP Pulse Ox 12/19/21 07:55 36.1 C L 85 16 156/93 H 98 - Physical Exam General Appearance: positive: No acute distress, Alert Eyes Bilateral: positive: PERRL, EOMI ENT: positive: No signs of dehydration Neck: positive: No JVD Respiratory: positive: No respiratory distress, Breath sounds nml Cardiovascular: positive: Regular rate & rhythm Abdomen: positive: Non-tender, No distention Neurologic/Psychiatric: positive: Oriented x3 Conclusion/Plan - Problem List (1) Colon cancer screening Conclusion/Plan: plan colonoscopy. parq held and consent obtained - Lab Results Lab results reviewed: Yes
[2021-12-19 11:07] VITALS: BP 132/92
[2021-12-19] MEDS ORDERED: ePHEDrine 50 MG/ML VIAL IVP ONE (11:09)
[2021-12-19] MEDS ORDERED: GLYCOPYRROLATE 1 MG/5 ML VIAL ONE (11:52)
--- NOTE | 2021-12-19 16:30 | ANESTHESIA POST OP EVALUATION ---
Anesthesia Post Eval - Post Anesthesia Eval Vitals: Last Vital Signs Temp 36.7 C 12/19/21 10:55 Pulse 85 12/19/21 10:55 Resp 16 12/19/21 10:55 BP 132/92 H 12/19/21 10:55 Pulse Ox 98 12/19/21 10:55 CV Function Including HR & BP: Stable Pain Control: Satisfactory Nausea & Vomiting: Negative Mental Status: Baseline Respiratory Status: Airway Patent Hydration Status: Satisfactory Anesthesia Complications: None
== END 2021-12-19 07:47 | disposition home or self-care (01) ==
LOC: SDS 07:46
PROVIDERS: ATTEND Surgery
PROC: 0DBM8ZZ Excision of Descending Colon, Via Natural or Artificial Opening Endoscopic (ICD-10-PCS; principal; 2021-12-19 09:30)
DX: Z12.11 Encounter for screening for malignant neoplasm of colon (principal); D12.4 Benign neoplasm of descending colon; K57.30 Diverticulosis of large intestine without perforation or abscess without bleeding; E11.9 Type 2 diabetes mellitus without complications; R06.81 Apnea, not elsewhere classified; Z79.899 Other long term (current) drug therapy; F41.9 Anxiety disorder, unspecified; E66.9 Obesity, unspecified; Z87.19 Personal history of other diseases of the digestive system
CPT/HCPCS: 45380; J7120

== ENCOUNTER 2022-01-28 11:16 | Outpatient (CLI) | payer MEDICARE ==
[2022-01-28 12:00] VITALS: BP 119/73
--- NOTE | 2022-01-28 12:00 | SLEEP CARE CONSULTATION ---
Information from patient questionnaire entered by Magdalena Boss MA. I have reviewed and concur with the information entered by Magdalena Boss MA. This document represents the service I personally performed and the decisions made by , Indy Suggs ARNP. History of Present Illness Service Date and Time: 01/28/2022 1116 Reason for Visit: New patient (ONSET 10/04/2021, NO PRIOR, ) Accompanied by: Spouse Chief Complaint: reports: Snoring, Observed pauses in breathing Date of Onset: unsure Usual bedtime: 11:30 PM Time it takes to fall asleep: HOUR Snores at night: Yes Observed to quit breathing while asleep: Yes Sleeps alone due to snoring: Yes Number of times waking at night: 1 - 2 Reasons for waking at night: reports: Other (unknown reason). denies: Choking, Snoring, Gasping for air Toss, Turn, or Twitch while sleeping: Yes Recalls having dreams: Yes Usually gets out of bed at: [id number] Feels refreshed in the morning: No Morning headache: No Sleepy or fatigued during the day: Yes Ever fallen asleep while driving: No (DONT DRIVE) Takes day naps: Yes (about every day; last 30 minutes on avg) Dreams during day naps: Yes Additional HPI information: I had the pleasure of seeing ELVIN JIMÉNEZ today regarding the possibility of her having a sleep disorder. Her current complaints are snoring and observed pauses in breathing. She is accompanied by her who states she gasps in her sleep and he has seen pauses in breathing when she is sleeping. She states she has difficulty falling asleep and will take trazodone to help her go to sleep. She states sometimes she will wake up at midnight but is able to go right back to sleep. She states she sleeps in her recliner at night. She usually does not wake up feeling rested. She states she has two sons who have sleep apnea and are on CPAP devices. Her is on a CPAP too. - Parasomnia Symptoms Ever been unable to move upon waking from sleep: No Walks in sleep: No Talks in sleep: No Ever acted out dreams in sleep: No Ever felt weak in the knees when startled or emotional: No Bothered by creepy, crawly, restless sensations in legs: No Problems with memory or concentration: No Subjective Initial Lehigh Sleepiness Scale score: 9 (01/28/2022) Past Medical History Past Medical History: reports: Hypertension, Anxiety Social History The patient's occupation is a [employer]. Patient is and lives in [place]. Have you smoked in the past 12 months: No Alcohol use: No Caffeine use: Yes Caffeine amount and frequency: iced tea 2 x a day Family History Family history of sleep disordered breathing: Yes Family Hx Sleep Apnea: Grandparent: Snoring, Other: Sleep apnea - Treated ([facility]) Allergies and Home Medications Known drug allergies: No Drug allergies reviewed: Yes Home medication list reviewed: Yes (SEE LIST ON SATURNINO) Allergy and home medication list: Allergies metformin Adverse Reaction (Verified 12/19/21 08:08) Nausea Medications: Bupropion HCL 150 mg Escitalopram Amlodipine 10 mg Trazodone for sleep Simvastatin 20 mg Review of Systems Weight gain over past 5 years: 50 Weight loss over past 5 years: 50 Cardiovascular: reports: high blood pressure Gastrointestinal: denies: heartburn Neurological: reports: head trauma (1982, fall/concussions). denies: headaches Psychiatric: reports: anxiety Ear/Nose/Throat: reports: dry mouth/throat (due to medications). denies: tonsillectomy, wisdom teeth removed Endocrine: denies: thyroid disease Physical Exam Vital signs obtained and entered by: Liz BOSS CMA ANDRAE Blood Pressure: 119/73 (RESP 16, PULE 86, RIGHT) Cuff size: wrist Heart Rate: 86 O2 Saturation: 98 (PAPER MASK) Height: 5 ft 1 in Weight: 191 lb (CLOTHES) Body Mass Index: 36.1 BMI Classification: Obese Neck circumference: 14 (INCHES) Mouth and throat: narrow oropharynx Soft palate: long Hard palate: normal Uvula: normal Uvula visualization: 25% Mallampati Class III Tongue: enlarged in size with teeth rincon on lateral edges Tonsils: small Neck: normal w/o lymphadenopathy or thyromegaly Heart: regular rate and rhythm Lungs: clear bilaterally Impression and Plan 1. Suspected Obstructive Sleep Apnea-Hypopnea Syndrome, as suggested by a history of loud and irregular snoring, observed cessation of breath while asleep, gasping or choking in sleep, unrefreshed sleep, and excessive daytime sleepiness. Narrow oropharynx and obesity are common predisposing factors for obstructive sleep apnea-hypopnea syndrome. I recommend proceeding to polysomnography to confirm the diagnosis and to assess severity. If the patient has significant sleep disordered breathing, a manual CPAP titration study will also be performed to find the optimal treatment pressure. I informed the patient of what the sleep studies involve and after some discussion, obtained agreement to proceed. The pathophysiology of obstructive sleep apnea-hypopnea syndrome was discussed with the patient and health risks of cardiovascular and cerebrovascular disease if not treated. Risks of drowsy driving discussed in detail and patient advised to avoid long distance driving and to pullman clerk at the first sign of drowsiness. Patient agreed to plan. * Schedule polysomnography * Avoid long distance driving or driving when feeling sleepy. * Avoid alcohol, sedative and muscle relaxant around bedtime. * Attempt to lose weight. * Review instructions provided by trained office staff on how to prepare for the sleep study. * Return for follow-up after sleep study completed. Counseling Topics: Weight loss health impact Visit Type: In Office Other Participants: Spouse/Significant Other Time Spent with Patient (minutes): 30 Provider Statement: I spent 100% of the Face to Face Visit with the patient with greater than 50% spent counseling the patient and coordination of care.
== END 2022-01-28 11:17 | disposition home or self-care (01) ==
LOC: SC 11:16
PROVIDERS: ATTEND Nurse Practitioner Family
DX: G47.10 Hypersomnia, unspecified (principal); R06.83 Snoring; G47.8 Other sleep disorders; R06.81 Apnea, not elsewhere classified; I10 Essential (primary) hypertension; E66.9 Obesity, unspecified; Z68.36 Body mass index [BMI] 36.0-36.9, adult
CPT/HCPCS: 99203; G0463; 99212

== ENCOUNTER 2022-04-01 15:25 | Outpatient (CLI) | payer MEDICARE ==
[2022-04-01 15:58] LABS: CALCIUM 9.6 mg/dL (8.5-10.3); POTASSIUM 3.7 mmol/L (3.5-5.0)
[2022-04-01 19:59] LABS: ESTIMATED AVERAGE GLUCOSE 123 mg/dL (70-100); HEMOGLOBIN A1c% 5.9 % (4.27-6.07)
== END 2022-04-01 15:26 | disposition home or self-care (01) ==
LOC: LAB 15:25
PROVIDERS: ATTEND Nurse Practitioner Family
DX: E11.9 Type 2 diabetes mellitus without complications (principal)
CPT/HCPCS: 36415; 80048; 83036

== ENCOUNTER 2022-07-21 11:44 | Outpatient (CLI) | payer MEDICARE ==
[2022-07-21 11:57] LABS: BASOPHILS % (AUTO) 0.5 %; EOSINOPHILS # (AUTO) 0.2 10^3/uL (0.0-0.7); EOSINOPHILS % (AUTO) 3.5 %; HCT - HEMATOCRIT 44.3 % (37.0-47.0); HGB - HEMOGLOBIN 14.6 g/dL (12.0-16.0); LYMPHOCYTES # (AUTO) 2.1 10^3/uL (1.5-3.5); MEAN CORPUSCULAR HEMOGLOBIN 30.9 pg (27.0-31.0); MEAN CORPUSCULAR VOLUME 93.7 fL (81.0-99.0); MEAN PLATELET VOLUME 9.6 fL (7.9-10.8); MONOCYTES # (AUTO) 0.3 10^3/uL (0.0-1.0); MONOCYTES % (AUTO) 4.9 %; NEUTROPHILS # (AUTO) 3.1 10^3/uL (1.5-6.6); NEUTROPHILS % (AUTO) 53.9 %; PLT - PLATELET COUNT 220 10^3/uL (130-450); RED BLOOD COUNT 4.73 10^6/uL (4.20-5.40); RED CELL DISTRIBUTION WIDTH 12.8 % (12.0-15.0); WHITE BLOOD COUNT 5.8 x10^3/uL (4.8-10.8)
[2022-07-21 12:15] LABS: ESTIMATED AVERAGE GLUCOSE 166 mg/dL (70-100); HEMOGLOBIN A1c% 7.4 % (4.27-6.07)
[2022-07-21 12:17] LABS: ALBUMIN/GLOBULIN RATIO 1.1 (1.0-2.2); ALKALINE PHOSPHATASE 48 IU/L (42-121); ALT ALANINE AMINOTRANSFERASE 32 IU/L (10-60); AST ASPARTATE AMINOTRANSFERASE 23 IU/L (10-42); BILIRUBIN,TOTAL 0.7 mg/dL (0.2-1.0); BUN - BLOOD UREA NITROGEN 17 mg/dL (6-20); CALCIUM 9.5 mg/dL (8.5-10.3); CARBON DIOXIDE - CO2 26 mmol/L (21-32); CHLORIDE 97 mmol/L (101-111); CHOL/HDL RATIO 3.8 (<4.4); CHOLESTEROL 232 mg/dL; GFR - MDRD 56 (>89); GLUCOSE 244 mg/dL (70-100); HDL CHOLESTEROL 61 mg/dL; LDL CHOLESTEROL,CALCULATED 121 mg/dL; POTASSIUM 4.1 mmol/L (3.5-5.0); SODIUM 135 mmol/L (135-145); TOTAL PROTEIN 7.6 g/dL (6.7-8.2); TRIGLYCERIDES 249 mg/dL; VLDL CHOLESTEROL 50 mg/dL
[2022-07-21 12:27] LABS: THYROID STIMULATING HORMONE 3.31 uIU/mL (0.34-5.60)
== END 2022-07-21 11:45 | disposition home or self-care (01) ==
LOC: LAB 11:44
PROVIDERS: ATTEND Nurse Practitioner Family
DX: I10 Essential (primary) hypertension (principal); E78.5 Hyperlipidemia, unspecified; E66.9 Obesity, unspecified
CPT/HCPCS: 36415; 80053; 80061; 83036; 83721; 84443; 85025

== ENCOUNTER 2023-01-29 12:18 | Outpatient (CLI) | payer MEDICARE ==
--- NOTE | 2023-01-30 09:22 | Mammography Report ---
BILATERAL DIGITAL SCREENING MAMMOGRAM 3D/2D: 01/29/2023 CLINICAL: Routine screening. Comparison is made to exams dated: 10/01/2021 mammogram, 08/09/2020 mammogram, and 11/09/2018 mammogram - [facility]. There are scattered areas of fibroglandular density in both breasts (category b / 25%-50% glandular t issue). No significant masses, calcifications, or other findings are seen in either breast. There has been no significant interval change. IMPRESSION: NEGATIVE There is no mammographic evidence of malignancy. A 1 year screening mammogram is recommended. Based on the Tyrer Cuzick model (a risk assessment model) the patients lifetime risk is 5.9% and her 10 year risk is 2.9%. According to the ACR, ACS, and NCCN guidelines, an annual breast MRI exam horace g with mammogram is recommended if the patients lifetime risk is 20% or greater. This exam was interpreted at Station ID: [id number]. NOTE: For mammograms, a report in lay terms will be sent to the patient. Approximately 15% of breast malignancies will not be visualized mammographically. In the management of a palpable breast mass, a negative mammogram must not discourage biopsy of a clinically suspicious lesion. Electronically Signed By: Stefano lang/maylin:01/29/2023 15:24:58 letter sent: No_Letter ACR BI-RADS Category 1: Negative 3341F PARENCHYMAL PATTERN: (A) - The breast(s) demonstrate(s) scattered fibroglandular densities. BI-RADS CATEGORY: (1) - 1 Mammogram [id number] 1 year screening LATERALITY: (B)
== END 2023-01-29 12:19 | disposition home or self-care (01) ==
LOC: DI 12:18
DX: Z12.31 Encounter for screening mammogram for malignant neoplasm of breast (principal)

== ENCOUNTER 2023-02-04 10:56 | Outpatient (CLI) | payer MEDICARE ==
[2023-02-04 14:25] LABS: ESTIMATED AVERAGE GLUCOSE 137 mg/dL (70-100); HEMOGLOBIN A1c% 6.4 % (4.27-6.07)
== END 2023-02-04 10:57 | disposition home or self-care (01) ==
LOC: LAB 10:56
PROVIDERS: ATTEND Nurse Practitioner Family
DX: E11.9 Type 2 diabetes mellitus without complications (principal)
CPT/HCPCS: 36415; 83036

== ENCOUNTER 2023-08-04 09:35 | Outpatient (CLI) | payer MEDICARE ==
[2023-08-04 09:51] LABS: BASOPHILS % (AUTO) 0.5 %; EOSINOPHILS # (AUTO) 0.2 10^3/uL (0.0-0.7); EOSINOPHILS % (AUTO) 2.9 %; HCT - HEMATOCRIT 49.4 % (37.0-47.0); HGB - HEMOGLOBIN 15.8 g/dL (12.0-16.0); LYMPHOCYTES # (AUTO) 2.3 10^3/uL (1.5-3.5); LYMPHOCYTES % (AUTO) 39.1 %; MEAN CORPUSCULAR HEMOGLOBIN 30.7 pg (27.0-31.0); MEAN CORPUSCULAR VOLUME 95.9 fL (81.0-99.0); MEAN PLATELET VOLUME 9.4 fL (7.9-10.8); MONOCYTES # (AUTO) 0.3 10^3/uL (0.0-1.0); MONOCYTES % (AUTO) 5.7 %; NEUTROPHILS % (AUTO) 51.5 %; PLT - PLATELET COUNT 201 10^3/uL (130-450); RED BLOOD COUNT 5.15 10^6/uL (4.20-5.40); RED CELL DISTRIBUTION WIDTH 13.2 % (12.0-15.0); WHITE BLOOD COUNT 5.8 x10^3/uL (4.8-10.8)
[2023-08-04 10:05] LABS: ALBUMIN 4.3 g/dL (3.2-5.5); ALBUMIN/GLOBULIN RATIO 1.4 (1.0-2.2); ALKALINE PHOSPHATASE 46 IU/L (42-121); ALT ALANINE AMINOTRANSFERASE 19 IU/L (10-60); AST ASPARTATE AMINOTRANSFERASE 13 IU/L (10-42); BILIRUBIN,TOTAL 0.5 mg/dL (0.2-1.0); BUN - BLOOD UREA NITROGEN 11 mg/dL (6-20); CALCIUM 9.6 mg/dL (8.5-10.3); CARBON DIOXIDE - CO2 29 mmol/L (21-32); CHLORIDE 103 mmol/L (101-111); CHOL/HDL RATIO 3.1 (<4.4); CHOLESTEROL 180 mg/dL; CREATININE 1.1 mg/dL (0.6-1.3); GFR - MDRD 50 (>89); GLUCOSE 142 mg/dL (74-104); HDL CHOLESTEROL 58 mg/dL; LDL CHOLESTEROL,CALCULATED 81 mg/dL; LDL/HDL RATIO 1.4 (<4.4); POTASSIUM 4.5 mmol/L (3.5-4.5); SODIUM 139 mmol/L (135-145); TOTAL PROTEIN 7.3 g/dL (6.4-8.9); TRIGLYCERIDES 203 mg/dL (48-352); VLDL CHOLESTEROL 41 mg/dL
[2023-08-04 10:19] LABS: THYROID STIMULATING HORMONE 4.12 uIU/mL (0.34-5.60)
[2023-08-04 11:39] LABS: ESTIMATED AVERAGE GLUCOSE 151 mg/dL (70-100); HEMOGLOBIN A1c% 6.9 % (4.27-6.07)
== END 2023-08-04 09:36 | disposition home or self-care (01) ==
LOC: LAB 09:35
PROVIDERS: ATTEND Nurse Practitioner Family
DX: I10 Essential (primary) hypertension (principal); E66.01 Morbid (severe) obesity due to excess calories; E78.5 Hyperlipidemia, unspecified; E11.9 Type 2 diabetes mellitus without complications
CPT/HCPCS: 36415; 80053; 80061; 83036; 83721; 84443; 85025

== ENCOUNTER 2024-01-05 09:27 | Emergency (ER) | payer MEDICARE, MEDICAID ==
--- NOTE | 2024-01-05 09:49 | ED Physician Documentation ---
PD HPI ABD PAIN - Stated complaint Stated Complaint: LT SIDE/ABD PX - Chief complaint Chief Complaint: Abd Pain - History obtained from History obtained from: Patient - History of Present Illness Timing - onset: How many days ago (3) Timing - duration: Days (3) Timing - details: Gradual onset, Still present Quality: Sharp, Pain Location: LLQ Radiation: Left flank Improved by: Laying still Worsened by: Moving, Position, Palpation Associated symptoms: Nausea, Other (stool is unsatisfactory sort of soft and yucky). No: Vomiting, Diarrhea, Constipation Similar symptoms before: Diagnosis (diverticulitis) Recently seen: Not recently seen - Additional information Additional information: Chen fofana is a 68-year-old female with a history of recurrent diverticulitis who has developed similar symptoms again about 3 days ago. Her last episode was 2 years ago and at that time she was treated with Augmentin successfully. She usually requires Diflucan anytime she is using antibiotics. Review of Systems Constitutional: reports: Chills, Fatigue. denies: Fever Eyes: denies: Decreased vision Ears: denies: Ear pain Nose: denies: Congestion Throat: denies: Sore throat Cardiac: denies: Chest pain / pressure, Palpitations Respiratory: reports: Cough (similar to always with trazodone). denies: Dyspnea GI: reports: Abdominal Pain, Nausea. denies: Vomiting, Constipation, Diarrhea : denies: Dysuria, Frequency Skin: denies: Rash Musculoskeletal: reports: Back pain (left flank pain). denies: Neck pain, Extremity pain Neurologic: denies: Generalized weakness, Focal weakness, Numbness PD PAST MEDICAL HISTORY - Past Medical History Cardiovascular: Hypertension, High cholesterol Respiratory: None Endocrine/Autoimmune: Type 2 diabetes GI: GERD, Colon polyps, Diverticulitis : None HEENT: Chronic vision loss Psych: Depression, Anxiety, ADD/ADHD Musculoskeletal: Gout Derm: Eczema - Past Surgical History Past Surgical History: Yes General: Colonoscopy - Present Medications Home Medications: Ambulatory Orders Medication Instructions Recorded Confirmed Escitalopram Oxalate 20 mg PO DAILY 11/01/15 01/05/24 Simvastatin 20 mg PO DAILY 09/11/17 01/05/24 amLODIPine [Norvasc] 10 mg PO DAILY 05/28/19 01/05/24 Multivitamin 1 each PO DAILY 12/05/21 01/05/24 Trazodone HCl 50 - 100 mg PO QPM PRN 12/05/21 01/05/24 Amox/Clav 875/125 [Augmentin] 1 each PO Q12H #20 tablet 01/05/24 Empagliflozin [Jardiance] 10 mg PO DAILY 01/05/24 01/05/24 Fluconazole 150 mg PO ONCE #3 tablet 01/05/24 HYDROcod/ACETAM 5/325 [[place] 5/325] 1 - 2 tablet PO Q6H PRN #14 tablet 01/05/24 Rosuvastatin Calcium 10 mg PO DAILY 01/05/24 01/05/24 - Allergies Allergies/Adverse Reactions: Allergies Allergy/AdvReac Type Severity Reaction Status Date / Time metformin AdvReac Nausea Verified 01/05/24 09:36 - Social History Does the pt smoke?: No Smoking Status: Never smoker Does the pt drink ETOH?: No Does the pt have substance abuse?: No - Immunizations Immunizations are current?: No - POLST Patient has POLST: No PD ED PE NORMAL - Vitals Vital signs reviewed: Yes (hypertensive ) - General General: Alert and oriented X 3, No acute distress, Well developed/nourished - HEENT HEENT: Atraumatic, PERRL, EOMI - Neck Neck: Supple, no meningeal sign, No bony TTP - Cardiac Cardiac: RRR, No murmur - Respiratory Respiratory: No respiratory distress, Clear bilaterally - Abdomen Abdomen: Normal bowel sounds, Soft, Non distended, No organomegaly, Other (LLQ tenderness without peritoneal signs. No tenderness to bimanual palpation of the left kidney.) - Back Back: No CVA TTP, No spinal TTP - Derm Derm: Normal color, Warm and dry, No rash - Extremities Extremities: No deformity, No edema - Neuro Neuro: Alert and oriented X 3, energy projects lead 2-12 intact, No motor deficit, No sensory deficit, Normal speech Eye Opening: Spontaneous Motor: Obeys Commands Verbal: Oriented GCS Score: 15 - Psych Psych: Normal mood, Normal affect Results - Vitals Vitals: Vital Signs - 24 hr 01/05/24 09:31 Temperature 36.7 C Heart Rate 95 Respiratory 18 Rate Blood Pressure 149/76 H O2 Saturation 96 Oxygen O2 Source Room air - Labs Labs: Laboratory Tests 01/05/24 01/05/24 01/05/24 09:41 09:51 09:51 WBC 7.0 RBC 4.90 Hgb 15.3 Hct 46.3 MCV 94.5 MCH 31.2 H MCHC 33.0 RDW 12.9 Plt Count 197 MPV 9.4 Neut # (Auto) 4.6 Lymph # (Auto) 1.9 [place] # (Auto) 0.3 Eos # (Auto) 0.1 Baso # (Auto) 0.0 Absolute Nucleated RBC 0.00 Nucleated RBC % 0.0 Sodium 137 Potassium 4.1 Chloride 101 Carbon Dioxide 27 Anion Gap 9.0 BUN 15 Creatinine 1.0 Estimated GFR (MDRD) 55 L Glucose 134 H Calcium 9.9 Total Bilirubin 0.7 AST 11 ALT 17 Alkaline Phosphatase 51 Total Protein 7.5 Albumin 4.4 Globulin 3.1 Albumin/Globulin Ratio 1.4 Lipase 15 Urine Color LT. YELLOW Urine Clarity CLEAR Urine pH 5.5 Ur Specific [place] 1.025 Urine Protein NEGATIVE Urine Glucose (UA) >=1000 H Urine Ketones 15 H Urine Occult Blood SMALL H Urine Nitrite NEGATIVE Urine Bilirubin NEGATIVE Urine Urobilinogen 0.2 (NORMAL) Ur Leukocyte Esterase NEGATIVE Urine RBC 0-5 Urine WBC 0-3 Ur Squamous Epith Cells FEW Squamous Urine Bacteria Few Ur Microscopic Review INDICATED Urine Culture Comments NOT INDICATED - Rads (name of study) CT ab/pel Relevant Findings:: Prelim report reviewed (Impression: Diverticulitis of the sigmoid colon, without perforation.), EMP independent interpretation of test, See rad report PD Medical Decision Making - ED course Complexity details: reviewed old records, reviewed results, re-evaluated patient, considered differential, d/w patient Reviewed Lab Results: We reviewed a complete blood count showing a normal white blood cell count normal hemoglobin hematocrit and platelets chemistries with normal electrolytes normal kidney and liver function urinalysis remarkable for glucose in the urine small occult blood. These laboratory studies do not contribute to any specific diagnosis they are reassuring for the presence of a illness that is not overwhelming. ED course: 68 year-old Chen given return to the emergency department with symptoms consistent with a recurrence of diverticulitis. She has tenderness to the left lower quadrant she is afebrile she has normal white blood cell count her CT scan shows evidence of sigmoid diverticulitis without evidence of perforation. We will treat her as an outpatient with oral medications as she has tolerated this previously. Departure - Departure Disposition: 01 Home, Self Care Clinical Impression: Diverticulitis of gastrointestinal tract Condition: Stable Instructions: ED Diverticulitis Follow-Up: Elva Escobar ARNP [Primary Care Provider] - Prescriptions: Amox/Clav 875/125 [Augmentin] 1 each PO Q12H #20 tablet Fluconazole 150 mg PO ONCE #3 tablet HYDROcod/ACETAM 5/325 [[place] 5/325] 1 - 2 tablet PO Q6H PRN #14 tablet PRN Reason: Pain Comments: Chen, no surprise today you do have diverticulitis again and we have E scribed some Augmentin and fluconazole as well as some pain medication to the would be community pharmacy here in [place]. Our expectation with treatment is slow and steady improvement in your pain and resolution of your symptoms. Forms: PCP List
[2024-01-05 09:52] LABS: BILIRUBIN,URINE NEGATIVE (NEGATIVE); GLUCOSE, URINE (UA) >=1000 mg/dL (NEGATIVE); KETONES,URINE (UA) 15 mg/dL (NEGATIVE); LEUKOCYTE ESTERASE, URINE NEGATIVE (NEGATIVE); NITRITE,URINE NEGATIVE (NEGATIVE); OCCULT BLOOD,URINE SMALL (NEGATIVE); PH,URINE 5.5 PH (5.0-7.5); PROTEIN,URINE NEGATIVE (NEGATIVE); UROBILINOGEN,URINE 0.2 (NORMAL) E.U./dL (NORMAL)
[2024-01-05 09:53] LABS: CLARITY,URINE CLEAR (CLEAR)
[2024-01-05 10:03] LABS: BACTERIA,URINE Few /HPF (None Seen); RBC,URINE 0-5 /HPF (0-5); SQUAMOUS EPITHELIAL CELL,UR FEW Squamous (<= Few); WBC,URINE 0-3 /HPF (0-5)
[2024-01-05] MEDS ORDERED: iohexoL-300 100 ML VIAL ONE (10:03)
[2024-01-05 10:04] LABS: BASOPHILS % (AUTO) 0.4 %; EOSINOPHILS # (AUTO) 0.1 10^3/uL (0.0-0.7); HCT - HEMATOCRIT 46.3 % (37.0-47.0); HGB - HEMOGLOBIN 15.3 g/dL (12.0-16.0); LYMPHOCYTES # (AUTO) 1.9 10^3/uL (1.5-3.5); MEAN CORPUSCULAR HEMOGLOBIN 31.2 pg (27.0-31.0); MEAN CORPUSCULAR VOLUME 94.5 fL (81.0-99.0); MEAN PLATELET VOLUME 9.4 fL (7.9-10.8); MONOCYTES # (AUTO) 0.3 10^3/uL (0.0-1.0); MONOCYTES % (AUTO) 4.9 %; NEUTROPHILS # (AUTO) 4.6 10^3/uL (1.5-6.6); NEUTROPHILS % (AUTO) 65.6 %; PLT - PLATELET COUNT 197 10^3/uL (130-450); RED CELL DISTRIBUTION WIDTH 12.9 % (12.0-15.0)
[2024-01-05 10:20] LABS: ALBUMIN 4.4 g/dL (3.2-5.5); ALBUMIN/GLOBULIN RATIO 1.4 (1.0-2.2); BILIRUBIN,TOTAL 0.7 mg/dL (0.2-1.0); CALCIUM 9.9 mg/dL (8.5-10.3); POTASSIUM 4.1 mmol/L (3.5-4.5); TOTAL PROTEIN 7.5 g/dL (6.4-8.9)
[2024-01-05] MEDS: iohexoL-300 100 ML VIAL IVP ONE (10:50)
--- NOTE | 2024-01-05 11:01 | CT Report ---
PROCEDURE: Abdomen/Pelvis W INDICATIONS: LLQ pain CONTRAST: Omni 300 100ml TECHNIQUE: After the administration of intravenous contrast, a CT scan of the abdomen and pelvis was performed. Images were recorded and evaluated at appropriate window settings. Reformats: coronal and sagittal. F or radiation dose reduction, the following was used: automated exposure control, adjustment of mA and /or kV according to patient size. COMPARISON: 07/29/2021 FINDINGS: Image quality: Diagnostic. Lower chest: Unremarkable. Liver: No solid mass. Gallbladder: No radiopaque stones or wall thickening. Biliary tree: No intrahepatic or extrahepatic dilation, accounting for age. Spleen: No splenomegaly. Pancreas: No pancreatic ductal dilation. Adrenals: No adrenal nodule. Kidneys and ureters: No hydronephrosis. No renal cystic lesion which requires follow up. No solid mas s. Stomach, bowel and peritoneum: Acute diverticulitis of the sigmoid colon, with bowel wall thickening and pericolonic fat stranding. No evidence of perforation. Appendix is unremarkable. Lymph nodes: No central or retroperitoneal adenopathy. Vessels: No infrarenal aortic aneurysm. Patent portal vein. PELVIS Reproductive organs: Unremarkable. Bladder: No abnormal wall thickening, accounting for underdistention. Pelvic lymph nodes: No pelvic adenopathy by size criteria. Bones: No aggressive osseous abnormality. Other: No significant ventral or inguinal hernia. IMPRESSION: Diverticulitis of the sigmoid colon, without perforation. Reviewed by: Aaron Varela MD on 01/05/2024 11:00 AM PDT Approved by: Aaron Varela MD on 01/05/2024 11:00 AM PDT Station ID: [id number]
[2024-01-05 12:29] VITALS: BP 119/73; O2SAT 98
== END 2024-01-05 12:23 | disposition home or self-care (01) ==
LOC: ED 09:27
DX: K57.32 Diverticulitis of large intestine without perforation or abscess without bleeding (principal)
CPT/HCPCS: 36415; 74177; 80053; 81001; 83690; 85025; 99284; Q9967; 81003; 87086

== ENCOUNTER 2024-01-19 08:39 | Outpatient (CLI) | payer MEDICARE, MEDICAID ==
[2024-01-19 09:10] LABS: BASOPHILS % (AUTO) 0.7 %; EOSINOPHILS # (AUTO) 0.2 10^3/uL (0.0-0.7); EOSINOPHILS % (AUTO) 2.7 %; HCT - HEMATOCRIT 48.3 % (37.0-47.0); HGB - HEMOGLOBIN 15.4 g/dL (12.0-16.0); MEAN CORPUSCULAR HEMOGLOBIN 31.1 pg (27.0-31.0); MEAN CORPUSCULAR HGB CONC 31.9 g/dL (32.0-36.0); MEAN CORPUSCULAR VOLUME 97.6 fL (81.0-99.0); MEAN PLATELET VOLUME 9.8 fL (7.9-10.8); MONOCYTES # (AUTO) 0.3 10^3/uL (0.0-1.0); MONOCYTES % (AUTO) 5.4 %; NEUTROPHILS # (AUTO) 3.1 10^3/uL (1.5-6.6); NEUTROPHILS % (AUTO) 55.2 %; PLT - PLATELET COUNT 257 10^3/uL (130-450); RED BLOOD COUNT 4.95 10^6/uL (4.20-5.40); RED CELL DISTRIBUTION WIDTH 13.2 % (12.0-15.0); WHITE BLOOD COUNT 5.6 x10^3/uL (4.8-10.8)
[2024-01-19 09:18] LABS: ALBUMIN 4.3 g/dL (3.2-5.5); ALBUMIN/GLOBULIN RATIO 1.4 (1.0-2.2); ALKALINE PHOSPHATASE 45 IU/L (42-121); ALT ALANINE AMINOTRANSFERASE 15 IU/L (10-60); AST ASPARTATE AMINOTRANSFERASE 10 IU/L (10-42); BILIRUBIN,TOTAL 0.5 mg/dL (0.2-1.0); BUN - BLOOD UREA NITROGEN 15 mg/dL (6-20); CALCIUM 9.5 mg/dL (8.5-10.3); CARBON DIOXIDE - CO2 27 mmol/L (21-32); CHLORIDE 104 mmol/L (101-111); CHOL/HDL RATIO 3.4 (<4.4); CHOLESTEROL 181 mg/dL; CREATININE 0.9 mg/dL (0.6-1.3); GFR - MDRD 62 (>89); GLUCOSE 156 mg/dL (74-104); HDL CHOLESTEROL 54 mg/dL; LDL CHOLESTEROL,CALCULATED 85 mg/dL; LDL/HDL RATIO 1.6 (<4.4); POTASSIUM 4.1 mmol/L (3.5-4.5); SODIUM 138 mmol/L (135-145); TOTAL PROTEIN 7.4 g/dL (6.4-8.9); TRIGLYCERIDES 211 mg/dL; VLDL CHOLESTEROL 42 mg/dL
[2024-01-19 10:25] LABS: ESTIMATED AVERAGE GLUCOSE 134 mg/dL (70-100); HEMOGLOBIN A1c% 6.3 % (4.27-6.07)
== END 2024-01-19 08:40 | disposition home or self-care (01) ==
LOC: LAB 08:39
PROVIDERS: ATTEND Nurse Practitioner Family
DX: I10 Essential (primary) hypertension (principal); E11.9 Type 2 diabetes mellitus without complications; E78.5 Hyperlipidemia, unspecified
CPT/HCPCS: 36415; 80053; 80061; 83036; 83721; 85025